=== PATIENT | male | born 1940 | race Caucasian/White ===

== ENCOUNTER 2018-04-30 16:54 | Inpatient (IN) | payer OTHER, BC ==
[2018-04-30 17:16] VITALS: BMI 28.8
--- NOTE | 2018-04-30 17:18 | PDOC ---
Rapid Medical Evaluation Chief Complaint: Weakness Medical Evaluation: Allergies Allergy/AdvReac Type Severity Reaction Status Date / Time No Known Allergies Allergy Verified 04/30/18 17:11 04/30/18 17:13 I have performed a brief in-person evaluation of this patient. The patient presents with a chief complaint of:sent from Dr Garza office for MRI, Cervical spine imaging for Pertinent physical exam findings: feeling well , weaker, I have ordered the following: CbC, CMP, Pt/ INR The patient will proceed to the ED for further evaluation. Discharge Disposition - Referrals Referrals: Martin Garza MD [Primary Care Provider] - - Patient Instructions - Post Discharge Activity
[2018-04-30 17:28] LABS: BASO % 0.7 % (0-2.0); EOS % 1.7 % (0-4.5); HEMATOCRIT 34.1 % (35.4-49); HEMOGLOBIN 11.9 GM/dL (11.7-16.9); LYMPH % 22.2 % (8-40); MCHC 35.1 g/dl (32.0-35.9); MEAN CELL VOLUME 88.4 fl (80-96); MEAN PLT VOLUME 7.7 fl (7.5-11.1); MONO % 8.1 % (3.8-10.2); NEUT % 67.3 % (42.8-82.8); PLATELET COUNT 388 K/MM3 (134-434); RBC 3.86 M/mm3 (4.00-5.60); RDW 15.9 % (11.9-15.9); WHITE BLOOD COUNT 7.8 K/mm3 (4.0-10.0)
[2018-04-30 17:45] LABS: INR 1.03 (0.83-1.09); PROTHROMBIN TIME (PATIENT) 12.2 SEC (9.7-13.0)
[2018-04-30 18:00] LABS: ALBUMIN 3.7 g/dl (3.4-5.0); ALK PHOS 97 U/L (45-117); ANION GAP 7 MMOL/L (8-16); BILIRUBIN,TOTAL 0.6 mg/dL (0.2-1); BLOOD UREA NITROGEN 15 mg/dL (7-18); CALCIUM 8.3 mg/dL (8.5-10.1); CHLORIDE 101 mmol/L (98-107); CO2 25 mmol/L (21-32); CREATININE 0.6 mg/dL (0.55-1.3); GLUCOSE,RANDOM 94 mg/dL (74-106); POTASSIUM 4.4 mmol/L (3.5-5.1); SGOT/AST 19 U/L (15-37); SGPT/ALT 32 U/L (13-61); SODIUM 134 mmol/L (136-145); TOT PROT 7.1 g/dl (6.4-8.2)
--- NOTE | 2018-04-30 18:59 | PDOC ---
History of Present Illness - General Chief Complaint: Weakness Stated Complaint: WEEKNESS Time Seen by Provider: 04/30/18 17:51 History Source: Patient, Care Provider Exam Limitations: No Limitations - History of Present Illness Initial Comments: 04/30/18 18:30 78YOM with h/o Dayan's syndrome, CVA, pre-existing mild left foot drop, HTN, and metastatic thyroid cancer s/p thyroidectomy. He presents with worsened left foot weakness over the past 2 weeks. He has had increased difficulty walking around his SNF ([facility]) and is now unable to ambulate himself. He has been doing PT at [facility] and had a clinic appointment with his neurologist (Dr. Garza) today. Dr. Garza had concern for cervical vs high thoracic myelopathy with likely epidural metastasis, possible cord compression, also C8T1 radiculopathy vs lower cord brachial plexopathy, also left peroneal mononeuropathy, also right Dayan's syndrome. The patient notes noticeable increased LLE weakness, right hand pain, otherwise denies any new symptoms. Past History - Past Medical History Allergies/Adverse Reactions: Allergies Allergy/AdvReac Type Severity Reaction Status Date / Time No Known Allergies Allergy Verified 04/30/18 17:11 Home Medications: Ambulatory Orders Acetaminophen 650 mg PO Q6H PRN 11/09/17 Atorvastatin Ca [Lipitor] 80 mg PO HS 11/09/17 Docusate Sodium [Colace] 100 mg PO DAILY 11/09/17 Enoxaparin [Lovenox -] 75 mg SQ BID 11/09/17 Gabapentin 300 mg PO BID 11/09/17 Gabapentin 600 mg PO HS #30 tablet 11/09/17 Levothyroxine [Synthroid -] 150 mcg PO DAILY 11/09/17 Metoprolol Succinate 50 mg PO DAILY 11/09/17 Multivitamins [Multivit ([facility] Formulary)] 1 tab PO DAILY 11/09/17 Cancer: Yes (leg and ribs) CVA: Yes COPD: No DVT: Yes GI Disorders: Yes (GERD) HTN: Yes Thyroid Disease: Yes - Surgical History Appendectomy: Yes - Immunization History Immunization Up to Date: Yes - Suicide/Smoking/Psychosocial Hx Smoking History: Never smoked Have you smoked in the past 12 months: No Hx Alcohol Use: No Drug/Substance Use Hx: No Substance Use Type: None Review of Systems - Review of Systems Able to Perform ROS?: Yes Comments:: GEN: no fever, chills, malaise, generalized weakness, or weight change HEENT: no ear pain, sore throat, vision change, or eye pain CV: no chest pain, palpitations, lightheadedness, syncope, or edema RESP: no cough, wheezing, or SOB GI: no abdominal pain, nausea, vomiting, diarrhea, constipation, or white/black/ bloody stool : no dysuria, hematuria, incontinence, retention, bleeding, or discharge MSK: right hand pain, no neck/back pain, no joint swelling/pain NEURO: left foot weakness, no headache, seizure, vertigo, numbness, tingling, or other focal weakness PSYCH: no substance use, no behavior change SKIN: no jaundice, no rash ROS otherwise negative except as noted in HPI *Physical Exam - Vital Signs Last Vital Signs Temp Pulse Resp BP Pulse Ox 98.0 F 64 18 155/65 97 04/30/18 17:12 04/30/18 17:12 04/30/18 17:12 04/30/18 17:12 04/30/18 17:12 04/30/18 21:10 GENERAL: nontoxic and well-appearing, A/Ox4, initially no distress at rest, answers questions appropriately, mild distress repositioning RUE, occasionally become anxious, caregiver at bedside, sitting in wheelchair HEENT: PERRLA, EOMI, moist mucous membranes NECK/BACK: no spinal stepoff or deformity, no hematoma, full ROM, neck supple CARDIOVASCULAR: regular rate/rhythm, normal S1S2, no MGR, strong peripheral pulses, capillary refill <2 seconds, extremities wwp, no edema LUNGS/RESPIRATORY: no respiratory distress, CTAB GI/ABDOMEN: symmetric hmax-uz-vamd, normoactive BS, soft, no ttp, no midline pulsatile masses : no CVA tenderness EXTREMITIES: no muscle atrophy, no acute deformity, no edema SKIN: warm and dry, no pallor, no jaundice, no rash, no bruising, no skin breakdown, no cuts, no lesions NEUROLOGICAL: GCS 15, CN II-XII grossly intact, 5/5 strength BUE and RLE, 3/5 strength LLE distally, no facial droop, gait not tested, normal yeprea-oh-bfle Moderate Sedation - Procedure Monitoring Vital Signs: Procedure Monitoring Vital Signs Temperature 98.0 F 04/30/18 17:12 Pulse Rate 64 04/30/18 17:12 Respiratory Rate 18 04/30/18 17:12 Blood Pressure 155/65 04/30/18 17:12 O2 Sat by Pulse Oximetry (%) 97 04/30/18 17:12 ED Treatment Course - LABORATORY CBC & Chemistry Diagram: 04/30/18 17:22 04/30/18 17:22 - ADDITIONAL ORDERS Additional order review: Laboratory Results 04/30/18 04/30/18 17:22 17:22 PT with INR 12.20 INR 1.03 Sodium 134 L Potassium 4.4 Chloride 101 Carbon Dioxide 25 Anion Gap 7 L BUN 15 Creatinine 0.6 Creat Clearance w eGFR > 60 Random Glucose 94 Calcium 8.3 L Total Bilirubin 0.6 AST 19 ALT 32 Alkaline Phosphatase 97 Total Protein 7.1 Albumin 3.7 04/30/18 17:22 RBC 3.86 L MCV 88.4 MCHC 35.1 RDW 15.9 MPV 7.7 Neutrophils % 67.3 Lymphocytes % 22.2 D Monocytes % 8.1 Eosinophils % 1.7 Basophils % 0.7 - RADIOLOGY Radiology Studies Ordered: Category Date Time Status CERVICAL SPINE MRI W&W/O CONTR [MRI] Stat MRI 04/30/18 18:24 Ordered THORACIC SPINE MRI W/O CONTR [MRI] Stat MRI 04/30/18 18:25 Ordered CHEST X-RAY PORTABLE* [RAD] Stat Radiology 04/30/18 18:26 Ordered Medical Decision Making - Medical Decision Making 04/30/18 19:06 78 YOM with pre-existing LLE foot drop p/w worsened LLE weakness x2 weeks. Sent for emergent MRI C/T spine wwo contrast to r/o cord compression. C/f metastatic thyroid cancer with cord compression. Initial Vital Signs Temp Pulse Resp BP Pulse Ox 98.0 F 64 18 155/65 97 04/30/18 17:12 04/30/18 17:12 04/30/18 17:12 04/30/18 17:12 04/30/18 17:12 04/30/18 19:[address] Garza, concern is for possibility of cervical vs high thoracic myelopathy with likely epidural metastasis, possible cord compression, also C8T1 radiculopathy vs lower cord brachial plexopathy, also left peroneal mononeuropathy, also right Dayan's syndrome. Provider Orders Category Date Time Status TYPE AND SCREEN Stat Blood Bank 04/30/18 18:26 Ordered EKG [ELECTROCARDIOGRAM] [CARD] Stat Cardiology 04/30/18 18:26 Ordered EKG needed NOW Care 04/30/18 18:26 Ordered CBC WITH DIFFERENTIAL Stat Lab 04/30/18 17:22 Completed COMP METABOLIC PANEL Stat Lab 04/30/18 17:22 Completed INR [PT/INR (PROTHROMBIN TIME)] Stat Lab 04/30/18 17:22 Completed MAGNESIUM Routine Lab 04/30/18 18:26 Ordered PHOSPHOROUS Routine Lab 04/30/18 18:26 Ordered URINALYSIS Stat Lab 04/30/18 18:26 Ordered CERVICAL SPINE MRI W&W/O CONTR [MRI] Stat MRI 04/30/18 18:24 Ordered THORACIC SPINE MRI W/O CONTR [MRI] Stat MRI 04/30/18 18:25 Ordered URINE CULTURE Stat Micro 04/30/18 18:26 Ordered CHEST X-RAY PORTABLE* [RAD] Stat Radiology 04/30/18 18:26 Ordered Obtain MRI Questionnaire See Order Reminders 04/30/18 18:25 Ordered 04/30/18 21:07 Laboratory Tests 04/30/18 04/30/18 04/30/18 17:22 17:22 17:22 WBC 7.8 RBC 3.86 L Hgb 11.9 Hct 34.1 L MCV 88.4 MCH 31.0 MCHC 35.1 RDW 15.9 Plt Count 388 MPV 7.7 Absolute Neuts (auto) 5.3 Neutrophils % 67.3 Lymphocytes % 22.2 D Monocytes % 8.1 Eosinophils % 1.7 Basophils % 0.7 Nucleated RBC % 0 PT with INR 12.20 INR 1.03 Sodium 134 L Potassium 4.4 Chloride 101 Carbon Dioxide 25 Anion Gap 7 L BUN 15 Creatinine 0.6 Creat Clearance w eGFR > 60 Random Glucose 94 Calcium 8.3 L Phosphorus Magnesium Total Bilirubin 0.6 AST 19 ALT 32 Alkaline Phosphatase 97 Total Protein 7.1 Albumin 3.7 04/30/18 20:16 WBC RBC Hgb Hct MCV MCH MCHC RDW Plt Count MPV Absolute Neuts (auto) Neutrophils % Lymphocytes % Monocytes % Eosinophils % Basophils % Nucleated RBC % PT with INR INR Sodium Potassium Chloride Carbon Dioxide Anion Gap BUN Creatinine Creat Clearance w eGFR Random Glucose Calcium Phosphorus Cancelled Magnesium Cancelled Total Bilirubin AST ALT Alkaline Phosphatase Total Protein Albumin 04/30/18 21:09 Patient notes RUE pain, given Gabapentin and Tylenol. Completed MRI questionnaire, patient still awaiting MRI spot to open. Patient's brother is Rickey, who is next of kin. Rickey's number is [phone]. 04/30/18 21:21 I have spoken with sterile proc tech at this time. They are unable to do the MRI tonight. MRI is aware this is a STAT order, emergent, r/o cord compression. The patient will be on the schedule for tomorrow. I have ordered 10 of decadron. The Pt is unsafe for discharge at this time. They require further hospital observation, workup, and treatment. Microblog sent to [facility] for admission. Blank Decision to Admit order is placed per ED protocol. Consult placed to Dr. Garza. *DC/Admit/Observation/Transfer Diagnosis at time of Disposition: Weakness of left foot, Right hand pain - Discharge Dispostion Condition at time of disposition: Guarded Decision to Admit order: Yes - Referrals Referrals: Martin Garza MD [Primary Care Provider] - - Patient Instructions - Post Discharge Activity
--- NOTE | 2018-04-30 19:12 | PDOC ---
Attending Attestation - Medical Decision Making 05/01/2018 01:29 EST EXAM: HEAD CT WITHOUT CONTRAST HISTORY: Footdrop COMPARISON: None. FINDINGS: The ventricular system is midline and nondilated. There is mild cortical atrophy and vessel ischemic disease.. Old small right occipital infarct is noted as well as a tiny old right cerebellar lobe infarct. There is no bleed, mass, extra-axial fluid collection or mass effect. No skull fracture or skull lesion is identified. The visualized paranasal sinuses and mastoid air cells are clear. IMPRESSION: No evidence of acute pathology. THIS DOCUMENT HAS BEEN ELECTRONICALLY SIGNED Anthony Jordan MD 05/01/18 01:42 Documentation prepared by Maria Elena Rivera, acting as certified medical coding specialist for Estephania Cantu MD <Maria Elena Rivera - Last Filed: 05/01/18 01:42> - Resident Resident Name: MeghanDulce - ED Attending Attestation I have performed the following: I have examined & evaluated the patient, The case was reviewed & discussed with the resident, I agree w/resident's findings & plan, Exceptions are as noted - HPI HPI: 04/30/18 19:10 78 yo male was seen by neurologist Dr Garza today and sent for further evaluation because this pt has increasing LLE weakness and L foot drop for the past 2 weeks PMH chronic L foot drop, thyroid cancer CC increased LL weakness x [address] Garza recognized right Dayan;s syndrome today and requested a MRI 04/30/18 20:55 alert 78 yo male on [facility] complaining of musculoskeletal pain head ncat neck no jvd lungs cta b/l cvs [id number] abd no rebound,no guarding skin warm and dry 04/30/18 21:00 - Physicial Exam PE: 04/30/18 22:26 78 yo male p/w chronic but worsening left foot drop head ncat neck no jvd lungs cta b/l cvs [id number] abd nontender extremities left foot drop neuro alert c/o of pain psych anxious - Medical Decision Making 04/30/18 22:03 pt admitted for hematology/oncology consult and for radiation oncology and further imaging studies. 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 Garza Patient has been a [facility] and his primary care provider is Dr. 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 -He has had some bladder incontinence in past few months -In December 2017. He was found to have metastases in T1, T2 -please consult Dr Og Roberson or Dr Zavala <Estephania Cantu - Last Filed: 05/01/18 02:33>
[2018-04-30] MEDS ORDERED: GABAPENTIN 300 MG CAPSULE (FP) PO ONE (20:53)
[2018-04-30] MEDS ORDERED: ACETAMINOPHEN 500 MG TABLET (FP) PO STA (20:53)
[2018-04-30] MEDS ORDERED: ACETAMINOPHEN 325 MG TABLET (FP) ONE (21:02)
[2018-04-30] MEDS ORDERED: GABAPENTIN 100 MG CAPSULE (FP) ONE (21:03)
[2018-04-30] MEDS ORDERED: DEXAMETHASONE SOD PHOSPHATE 10 MG/1 ML VIAL IVPUSH ONE (21:38)
[2018-04-30] MEDS ORDERED: DEXAMETHASONE SOD PHOSPHATE 10 MG/1 ML VIAL ONE (21:57)
--- NOTE | 2018-04-30 22:11 | HP ---
CHIEF COMPLAINT: left foot drop PCP: Bryn HISTORY OF PRESENT ILLNESS: 77-year-old male with past medical history of Throid ca, s/p thyroidectomy- '06 ? with mets to rib cage, thoracic vertebrae, left femur? s/p radiation therapy, radioactive iodine therapy however never had other systemic chemotherapy. Hx of DVT in left lower extremity, on AC with lovenox. Patient was in Dr. Garza's office and c/o worsening left foot drop and right hand pain. He is ambulatory with walker at baseline but unable to ambulate at this time. He is sent in for MRI of cervical and thoracic spine. Patient denied any numbness or paresthesias. He received decadron IV empirically in ER due to suspicion of possible spinal cord compression. ER course was notable for: (1) IV dexamethasone adminstration (2) tylenol (3) Recent Travel: no PAST MEDICAL HISTORY: Thyroid ca with mets, htn, acid reflux, DVT in LLE on Lovenox PAST SURGICAL HISTORY: thryoidectomy Social History: Smoking: no Alcohol: no Drugs: no Family History: Allergies No Known Allergies Allergy (Verified 04/30/18 17:11) HOME MEDICATIONS: Home Medications Medication Instructions Recorded Acetaminophen 650 mg PO Q6H PRN 11/09/17 Atorvastatin Ca [Lipitor] 80 mg PO HS 11/09/17 Docusate Sodium [Colace] 100 mg PO DAILY 11/09/17 Enoxaparin [Lovenox -] 75 mg SQ BID 11/09/17 Gabapentin 300 mg PO BID 11/09/17 Gabapentin 600 mg PO HS #30 tablet 11/09/17 Levothyroxine [Synthroid -] 150 mcg PO DAILY 11/09/17 Metoprolol Succinate 50 mg PO DAILY 11/09/17 Multivitamins [Multivit ([facility] 1 tab PO DAILY 11/09/17 Formulary)] REVIEW OF SYSTEMS CONSTITUTIONAL: Absent: fever, chills, diaphoresis, generalized weakness, malaise, loss of appetite, weight change HEENT: Absent: rhinorrhea, nasal congestion, throat pain, throat swelling, difficulty swallowing, mouth swelling, ear pain, eye pain, visual changes CARDIOVASCULAR: Absent: chest pain, syncope, palpitations, irregular heart rate, lightheadedness , peripheral edema RESPIRATORY: Absent: cough, shortness of breath, dyspnea with exertion, orthopnea, wheezing, stridor, hemoptysis GASTROINTESTINAL: Absent: abdominal pain, abdominal distension, nausea, vomiting, diarrhea, constipation, melena, hematochezia GENITOURINARY: Absent: dysuria, frequency, urgency, hesitancy, hematuria, flank pain, genital pain MUSCULOSKELETAL: Absent: joint swelling, back pain, neck pain Present-myalgia, arthralgia, SKIN: Absent: rash, itching, pallor HEMATOLOGIC/IMMUNOLOGIC: Absent: easy bleeding, easy bruising, lymphadenopathy, frequent infections ENDOCRINE: Absent: unexplained weight gain, unexplained weight loss, heat intolerance, cold intolerance NEUROLOGIC: Absent: headache, or paresthesias, dizziness, unsteady gait, seizure, mental status changes, bladder or bowel incontinence Present- focal weakness- left foot PSYCHIATRIC: Absent: anxiety, depression, suicidal or homicidal ideation, hallucinations. PHYSICAL EXAMINATION Vital Signs - 24 hr 04/30/18 17:12 Temperature 98.0 F Pulse Rate 64 Respiratory 18 Rate Blood Pressure 155/65 O2 Sat by Pulse 97 Oximetry (%) GENERAL: Awake, alert, and fully oriented, in no acute distress. HEAD: Normal with no signs of trauma. EYES: Pupils equal, round and reactive to light, extraocular movements intact, sclera anicteric, conjunctiva clear. No lid lag. EARS, NOSE, THROAT: Ears normal, nares patent, oropharynx clear without exudates. Moist mucous membranes. NECK: Normal range of motion, supple without lymphadenopathy, JVD, or masses. LUNGS: Breath sounds equal, clear to auscultation bilaterally. No wheezes, and no crackles. No accessory muscle use. HEART: Regular rate and rhythm, normal S1 and S2 without murmur, rub or gallop. ABDOMEN: Soft, nontender, not distended, normoactive bowel sounds, no guarding, no rebound, no masses. No hepatomegaly or splenomegaly. MUSCULOSKELETAL: Normal range of motion at all joints. No bony deformities or tenderness. No CVA tenderness. UPPER EXTREMITIES: right hand arthritis, deformity LOWER EXTREMITIES: 2+ pulses, warm, well-perfused. No calf tenderness. No peripheral edema. NEUROLOGICAL: left foot drop, inability to dorsiflex PSYCHIATRIC: Cooperative. Good eye contact. Appropriate mood and affect. SKIN: Warm, dry, normal turgor, no rashes or lesions noted, normal capillary refill. Laboratory Results - last 24 hr 04/30/18 04/30/1804/30/18 17:22 17:22 17:22 WBC 7.8 RBC 3.86 L Hgb 11.9 Hct 34.1 L MCV 88.4 MCH 31.0 MCHC 35.1 RDW 15.9 Plt Count 388 MPV 7.7 Absolute Neuts (auto) 5.3 Neutrophils % 67.3 Lymphocytes % 22.2 D Monocytes % 8.1 Eosinophils % 1.7 Basophils % 0.7 Nucleated RBC % 0 PT with INR 12.20 INR 1.03 Sodium 134 L Potassium 4.4 Chloride 101 Carbon Dioxide 25 Anion Gap 7 L BUN 15 Creatinine 0.6 Creat Clearance w eGFR > 60 Random Glucose 94 Calcium 8.3 L Phosphorus Magnesium Total Bilirubin 0.6 AST 19 ALT 32 Alkaline Phosphatase 97 Total Protein 7.1 Albumin 3.7 04/30/18 20:16 WBC RBC Hgb Hct MCV MCH MCHC RDW Plt Count MPV Absolute Neuts (auto) Neutrophils % Lymphocytes % Monocytes % Eosinophils % Basophils % Nucleated RBC % PT with INR INR Sodium Potassium Chloride Carbon Dioxide Anion Gap BUN Creatinine Creat Clearance w eGFR Random Glucose Calcium Phosphorus Cancelled Magnesium Cancelled Total Bilirubin AST ALT Alkaline Phosphatase Total Protein Albumin ASSESSMENT/PLAN: #78yo man with Thyroid ca history with reported mets with suspicion of new mets to spine. Worsening left foot symptoms. Cannot r/o CVA. -admit to telemetry -bed rest -fall precautions -f/u head CT report -neuro checks -s/p decadron IV -neuro evaluation - Dr. Garza -MRI of cervical and thoracic spines -Heme/onc evaluation for history of thyroid ca -NPO -PT evaluation -speech and swallow eval -echo -carotid duplex b/l #History of LLE DVT -c/w therapeutic dose of lovenox #Resultant hypothyroidism -c/w levothyroxine 150mcg po daily #HTN -c/w metoprolol DVT ppx- on lovenox Visit type - Emergency Visit Emergency Visit: Yes ED Registration Date: 04/30/18 Care time: The patient presented to the Emergency Department on the above date and was hospitalized for further evaluation of their emergent condition. - New Patient This patient is new to me today: Yes Date on this admission: 05/01/18 - Critical Care Critical Care patient: No
[2018-04-30 22:14] LABS: URINE APPEARANCE SLCLOUDY; URINE BILIRUBIN NEGATIVE (<2.0 mg/dL); URINE COLOR LTYELLOW; URINE GLUCOSE (UA) NEGATIVE (NEGATIVE); URINE KETONE NEGATIVE (NEGATIVE); URINE LEUK ESTERASE 3+ (NEGATIVE); URINE NITRITE NEGATIVE (NEGATIVE); URINE PROTEIN NEGATIVE (NEGATIVE); URINE UROBILINOGEN NEGATIVE mg/dL (0.2-1.0)
[2018-04-30 22:25] LABS: EPI CELLS RARE /HPF (FEW); URINE BACTERIA RARE /hpf (NONE SEEN); URINE MUCUS RARE; YEAST RARE
[2018-05-01] MEDS ORDERED: ENOXAPARIN NA (PORCINE) 80 MG/0.8 ML DISP.SYRIN SQ SCH (00:15)
[2018-05-01] MEDS ORDERED: ENOXAPARIN NA (PORCINE) 80 MG/0.8 ML DISP.SYRIN SQ ONE (01:35)
[2018-05-01] MEDS: ENOXAPARIN NA (PORCINE) 80 MG/0.8 ML DISP.SYRIN SQ SCH ×3 (02:52→21:39)
[2018-05-01 05:44] LABS: BASO % 0.3 % (0-2.0); HEMATOCRIT 36.4 % (35.4-49); HEMOGLOBIN 11.9 GM/dL (11.7-16.9); LYMPH % 8.7 % (8-40); MCH 29.3 pg (25.7-33.7); MCHC 32.6 g/dl (32.0-35.9); MEAN CELL VOLUME 89.9 fl (80-96); MONO % 0.9 % (3.8-10.2); NEUT % 90.1 % (42.8-82.8); PLATELET COUNT 346 K/MM3 (134-434); RBC 4.05 M/mm3 (4.00-5.60); WHITE BLOOD COUNT 7.6 K/mm3 (4.0-10.0)
[2018-05-01] MEDS ORDERED: HEPARIN NA (PORCINE) 5,000 UNITS/ML 1ML VIAL SQ SCH (06:00)
[2018-05-01] MEDS ORDERED: LEVOTHYROXINE NA 150 MCG TABLET PO SCH (07:00)
--- NOTE | 2018-05-01 09:44 | EKG ---
Test Reason : Blood Pressure : / mmHG Vent. Rate : 064 BPM Atrial Rate : 064 BPM P-R Int : 196 ms QRS Dur : 098 ms QT Int : 442 ms P-R-T Axes : 048 -26 062 degrees QTc Int : 455 ms NORMAL SINUS RHYTHM MODERATE VOLTAGE CRITERIA FOR LVH, MAY BE NORMAL VARIANT NONSPECIFIC ST ABNORMALITY ABNORMAL ECG WHEN COMPARED WITH ECG OF 09-NOV-2017 12:45, NO SIGNIFICANT CHANGE WAS FOUND Confirmed by LADAN URIAS, CHERRY ([id number]) on 05/01/2018 9:43:59 AM Referred By: Confirmed By:CHERRY PICKERING MD
--- NOTE | 2018-05-01 11:39 | ECHO ---
Name: KENNETH ANDUJAR Exam:Adult Echocardiogram Study Date: 05/01/2018 07:42 AM Age: 78 yrs Reason For Study: R/O PFO Height: 68 in Weight: 190 lb BSA: 2.0 m2 MMode/2D Measurements & Calculations IVSd: 1.1 cm Ao root diam: 3.1 cm LVIDd: 4.3 cm LA dimension: 2.6 cm LVIDs: 2.8 cm LVPWd: 1.0 cm EDV(Teich): 84.6 ml ESV(Teich): 30.7 ml Doppler Measurements & Calculations MV E max juan: 74.7 cm/sec AI P1/2t: 453.5 msec MV A max juan: 118.4 cm/sec MV E/A: 0.63 MV dec time: 0.20 sec AI max juan: 356.3 cm/sec TR max juan: 158.4 cm/sec AI max P.8 mmHg TR max P.1 mmHg AI dec slope: 230.1 cm/sec2 Procedure A two-dimensional transthoracic echocardiogram with color flow and Doppler was performed. Left Ventricle The left ventricular size, thickness and function are normal. The left ventricular ejection fraction is normal. E/A reversal consistent with but not diagnostic of poor LV compliance. The left ventricular w all motion is normal. Right Ventricle The right ventricle is normal in size and function. Atria Normal left and right atrial size and function. Atrial septum is not well visualized. TTE is not sensitive enough test to r/o PFO. Consider LIVIA if clically indicated. Mitral Valve There is mild mitral valve thickening. There is no mitral valve stenosis. There is trace to mild mitr al regurgitation. Tricuspid Valve There is mild tricuspid valve thickening. There is no tricuspid stenosis. There is moderate tricuspid regurgitation. Right ventricular systolic pressure is normal. Aortic Valve The aortic valve is trileaflet. There is mild aortic sclerosis.;. There is mild aortic valve thickeni ng. No hemodynamically significant valvular aortic stenosis. Moderate aortic regurgitation. Pulmonic Valve The pulmonic valve is not well visualized. There is no pulmonic valvular stenosis. There is no pulmon ic valvular regurgitation. Great Vessels The aortic root is normal size. Pericardium/Pleura There is no pericardial effusion. Interpretation Summary Moderate aortic regurgitation. There is moderate tricuspid regurgitation. Right ventricular systolic pressure is normal. The left ventricular wall motion is normal. E/A reversal consistent with but not diagnostic of poor LV compliance The left ventricular ejection fraction is normal. The left ventricular size, thickness and function are normal There is trace to mild mitral regurgitation. Atrial septum is not well visualized. TTE is not sensitive enough test to r/o PFO. Consider LIVIA if clically indicated. MD Esequiel Donahue 05/01/2018 11:38 AM
[2018-05-01] MEDS: DOCUSATE SODIUM 100 MG CAPSULE (FP) PO SCH (11:50)
[2018-05-01] MEDS: GABAPENTIN 300 MG CAPSULE (FP) PO SCH ×2 (11:51→21:39)
[2018-05-01] MEDS: MULTIVITAMINS (DAILY MVI) TABLET (FP) PO SCH (11:52)
[2018-05-01] MEDS ORDERED: ACETAMINOPHEN 325 MG TABLET (FP) ONE (12:09)
[2018-05-01] MEDS ORDERED: ACETAMINOPHEN 500 MG TABLET (FP) PO ONE (12:16)
[2018-05-01] MEDS: DEXTROSE 5%-0.45% SALINE 1,000 ML IV SCH (12:58)
--- NOTE | 2018-05-01 13:04 | CONSULT ---
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 He did well until 2014 with mets to the left femur and two ribs. He required ORIF of the femur x 2 and received RT to these [address] Salome Curry. Since then he has been followed by [facility] in [place]. Right hand numbness began around October and was attributed to "stroke" although Pt relates MRI of brain was normal. He had CT of the C-spine in October, however, that showed a metastatic disease to T1 with paraspinal extension to the right. Over the last 6 mos Pt has had progressive weakness, atrophy and pain in the right arm requiring narcotics. He has developed ptosis on the right and received Dx of Dayan's syndrome. Over the last 3 mos he has had progressive weakness in the legs with loss of ambulation. Recently, occasional urinary incontinence (in pull-ups). Exam: Decreased neck ROM with tenderness. Right ptosis and mild miosis (3mm vs 4 OS). Right grasp, intrinsics, APB all 2/5. Left ankle DF, eversion 3/5, inversion, PF 4/5. Brisk KJ's. Right Babinski. Sensory level to pinprick above the breasts. MRI of the Cervical and Thoracic spine (C+/C-) reviewed and discussed with Dr. Cuello. The study shows complete replacement of T1 with tumor and extensive epidural component, compressing the cord,and extensive right paraspinal extension compressing exiting nerve roots, the Brachial plexus and the sympathetic chain. 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 Left peroneal mononeuropathy. #'s 1-3 are all due to large T1 vertebral mass with right paraspinal and epidural extension. SUGGEST: Radiation oncology consultation Medical Oncology consultation Trial of Decadron Continue pain meds Not a surgical candidate. Thank you very much, Martin Garza MD
--- NOTE | 2018-05-01 14:13 | PN ---
Progress Note (short form) - Note Progress Note: Has pain in right arm Left foot drop Vital Signs - 24 hr 04/30/18 05/01/18 05/01/18 19:10 06:52 08:38 Temperature 97.7 F Pulse Rate Pulse Rate [ 94 H 69 Right Radial] Respiratory 17 16 Rate Blood Pressure Blood Pressure 162/77 120/6 L [Left Arm] O2 Sat by Pulse 100 96 95 Oximetry (%) 05/01/18 05/01/18 05/01/18 09:00 11:00 14:11 Temperature 98.4 F 98.3 F Pulse Rate Pulse Rate [ 74 66 Right Radial] Respiratory 18 18 Rate Blood Pressure Blood Pressure 106/59 L 99/54 L [Left Arm] O2 Sat by Pulse 95 95 95 Oximetry (%) 05/01/18 16:22 Temperature 98.0 F Pulse Rate 63 Pulse Rate [ Right Radial] Respiratory 20 Rate Blood Pressure 107/57 L Blood Pressure [Left Arm] O2 Sat by Pulse 97 Oximetry (%) Current Medications Generic Name Dose Route Start Last Admin Trade Name Freq PRN Reason Stop Dose Admin Acetaminophen 650 mg 05/01/18 12:16 Tylenol - PO Q4H PRN FEVER Atorvastatin Calcium 80 mg 05/01/18 22:00 Lipitor - PO HS [facility] Dexamethasone Sodium Phosphate 10 mg 05/01/18 18:00 Decadron Injection - IVPB Q6H [facility] Docusate Sodium 100 mg 05/01/18 10:00 05/01/18 11:50 Colace - PO 100 mg DAILY DEAN Administration Enoxaparin Sodium 80 mg 05/01/18 00:45 05/01/18 11:51 Lovenox - SQ 80 mg BID DEAN Administration Gabapentin 300 mg 05/01/18 10:00 05/01/18 11:51 Neurontin - PO 300 mg BID DEAN Administration Dextrose/Sodium Chloride 1,000 mls @ 75 mls/hr 05/01/18 10:00 05/01/18 12:58 D5-1/2ns - IV Not Given ASDIR DEAN Levothyroxine Sodium 150 mcg 05/01/18 07:00 05/01/18 08:13 Synthroid - PO 150 mcg DAILY@0700 DEAN Administration Metoprolol Succinate 50 mg 05/01/18 10:00 05/01/18 11:52 Toprol Xl - PO 50 mg DAILY DEAN Administration Multivitamins/Minerals/Vitamin C 1 tab 05/01/18 10:00 05/01/18 11:52 Tab-A-Vit - PO 1 tab DAILY DEAN Administration Oxycodone HCl 5 mg 05/01/18 12:16 Roxicodone - PO Q4H PRN PAIN LEVEL 6-10 Laboratory Results - last 24 hr 04/30/18 04/30/18 04/30/18 17:22 17:22 17:22 WBC 7.8 RBC 3.86 L Hgb 11.9 Hct 34.1 L MCV 88.4 MCH 31.0 MCHC 35.1 RDW 15.9 Plt Count 388 MPV 7.7 Absolute Neuts (auto) 5.3 Neutrophils % 67.3 Lymphocytes % 22.2 D Monocytes % 8.1 Eosinophils % 1.7 Basophils % 0.7 Nucleated RBC % 0 PT with INR 12.20 INR 1.03 Sodium 134 L Potassium 4.4 Chloride 101 Carbon Dioxide 25 Anion Gap 7 L BUN 15 Creatinine 0.6 Creat Clearance w eGFR > 60 Random Glucose 94 Calcium 8.3 L Phosphorus Magnesium Total Bilirubin 0.6 AST 19 ALT 32 Alkaline Phosphatase 97 Total Protein 7.1 Albumin 3.7 Triglycerides Cholesterol Total LDL Cholesterol HDL Cholesterol TSH Urine Color Urine Appearance Urine pH Ur Specific [place] Urine Protein Urine Glucose (UA) Urine Ketones Urine Blood Urine Nitrite Urine Bilirubin Urine Urobilinogen Ur Leukocyte Esterase Urine WBC (Auto) Urine RBC (Auto) Ur Epithelial Cells Urine Bacteria Urine Mucus Urine Yeast Blood Type Antibody Screen 04/30/18 04/30/18 04/30/18 20:07 20:16 20:16 WBC RBC Hgb Hct MCV MCH MCHC RDW Plt Count MPV Absolute Neuts (auto) Neutrophils % Lymphocytes % Monocytes % Eosinophils % Basophils % Nucleated RBC % PT with INR INR Sodium Potassium Chloride Carbon Dioxide Anion Gap BUN Creatinine Creat Clearance w eGFR Random Glucose Calcium Phosphorus Cancelled Magnesium Cancelled Total Bilirubin AST ALT Alkaline Phosphatase Total Protein Albumin Triglycerides Cholesterol Total LDL Cholesterol HDL Cholesterol TSH Urine Color Ltyellow Urine Appearance Slcloudy Urine pH 6.0 Ur Specific [place] 1.008 L Urine Protein Negative Urine Glucose (UA) Negative Urine Ketones Negative Urine Blood Negative Urine Nitrite Negative Urine Bilirubin Negative Urine Urobilinogen Negative Ur Leukocyte Esterase 3+ H Urine WBC (Auto) 192 Urine RBC (Auto) 18 Ur Epithelial Cells Rare Urine Bacteria Rare Urine Mucus Rare Urine Yeast Rare Blood Type A POSITIVE Antibody Screen Negative 05/01/18 05/01/18 05:10 05:10 WBC 7.6 RBC 4.05 Hgb 11.9 Hct 36.4 MCV 89.9 MCH 29.3 MCHC 32.6 RDW 16.0 H Plt Count 346 MPV 8.0 Absolute Neuts (auto) 6.8 Neutrophils % 90.1 H Lymphocytes % 8.7 D Monocytes % 0.9 L D Eosinophils % 0.0 D Basophils % 0.3 Nucleated RBC % 0 PT with INR INR Sodium Potassium Chloride Carbon Dioxide Anion Gap BUN Creatinine Creat Clearance w eGFR Random Glucose Calcium Phosphorus Magnesium Total Bilirubin AST ALT Alkaline Phosphatase Total Protein Albumin Triglycerides 57 Cholesterol 143 Total LDL Cholesterol 79 HDL Cholesterol 47 TSH 0.08 L Urine Color Urine Appearance Urine pH Ur Specific [place] Urine Protein Urine Glucose (UA) Urine Ketones Urine Blood Urine Nitrite Urine Bilirubin Urine Urobilinogen Ur Leukocyte Esterase Urine WBC (Auto) Urine RBC (Auto) Ur Epithelial Cells Urine Bacteria Urine Mucus Urine Yeast Blood Type Antibody Screen S1 S2 RRR Lungs clear Abd- soft, NT No edema PLAN spoke with PMD- DR Rae -- pt has h/o mets to thoracic spine and had radiation done in 2016-had recent follow up with Oncologist Pt had EMG done at Dr Garza's office prior to coming to the ER received Decadron Iv fluids PT eval pain control Problem List - Problems (1) Right hand pain Code(s): M79.641 - PAIN IN RIGHT HAND (2) Weakness of left foot Code(s): M21.42 - FLAT FOOT [PES PLANUS] (ACQUIRED), LEFT FOOT (3) Cervical radiculopathy Code(s): M54.12 - RADICULOPATHY, CERVICAL REGION (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
--- NOTE | 2018-05-01 16:33 | CONSULT ---
Consult Consult Specialty:: Hematology-Oncology Referred by:: Dr. 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 Was initially diagnosed in 2005 and treated with thyroidectomy, radioiodine therapy. In 2014 he sustained a spontaneous left femur fracture and was found to have mets in his left femur and ribs, he had 5 sessions of radiation therapy to b/l ribs and left femur [place] [address] Vick, last session in Feb 2015, shortly after he required a revision of a left femur titanium stephenie due to possible re-fracture(completed at [facility]). received PET scans with Dr. Vick every 3 months but nothing was abnormal. In October he thinks he was diagnosed with a stroke with subsequent Dayan's syndrome at [facility] and was started on metoprolol and lovenox for secondary prophylaxis due to hypercoaguability from malignancy. He notes numbness and tingling in his right arm since October and for past few days notes a functional decline in his mobility. typically is able to walk with a walker post-surgically but required a wheelchair to get to dining [facility]wing at [facility]. Denies chest pain, trouble swallowing, headaches, vision changes, tinnitus, cough, sob, cough, abdominal pain, incontinence, hematuria, melena, dysuria. denies hx of VTE. 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 at the age of 36 he began to identify as a male and underwent bilateral mastectomy, no hormonal therapy. requests to be addressed as a male. Fhx: mother with Grave's disease, 4 out of 5 siblings with thyroid dysfunction: sister with hashimotot's, 2 brothers with hypothyroidism soc hx: smoked cigars and a pipe for 10yrs, quit in 2005. socially drinks wine with dinner. denies illicit drug use Surgical hx: thyroidectomy 2005, femur fracture with ORIF in 2014 - History Source History Provided By: Patient - Alcohol/Substance Use Hx Alcohol Use: No - Smoking History Smoking history: Never smoked Have you smoked in the past 12 months: No Home Medications - Allergies Allergies/Adverse Reactions: Allergies Allergy/AdvReac Type Severity Reaction Status Date / Time No Known Allergies Allergy Verified 04/30/18 17:11 - Home Medications Home Medications: Ambulatory Orders Acetaminophen 650 mg PO Q6H PRN 11/09/17 Atorvastatin Ca [Lipitor] 80 mg PO HS 11/09/17 Docusate Sodium [Colace] 100 mg PO DAILY 11/09/17 Enoxaparin [Lovenox -] 75 mg SQ BID 11/09/17 Gabapentin 300 mg PO BID 11/09/17 Gabapentin 600 mg PO HS #30 tablet 11/09/17 Levothyroxine [Synthroid -] 150 mcg PO DAILY 11/09/17 Metoprolol Succinate 50 mg PO DAILY 11/09/17 Multivitamins [Multivit ([facility] Formul[facility])] 1 tab PO DAILY 11/09/17 Review of Systems - Review of Systems Constitutional: denies: Fever, Loss of Appetite, Unintentional Wgt. Loss, Weakness Eyes: denies: Blurred Vision, Double Vision HENT: denies: Difficult Swallowing, Throat Pain Neck: denies: Stiffness, Tenderness Cardiovascular: denies: Chest Pain, Palpitations, Shortness of Breath Respiratory: denies: Cough Gastrointestinal: denies: Abdominal Pain, Constipation, Diarrhea, Vomiting Genitourinary: denies: Dysuria Musculoskeletal: reports: Muscle Weakness. denies: Back Pain Integumentary: reports: No Symptoms Neurological: reports: Parasthesia (right arm), Weakness. denies: Confusion, Dizziness, Headache Hematology/Lymphatic: reports: No Symptoms Psychiatric: reports: No Symptoms Physical Exam Vital Signs: Vital Signs Temperature 98.3 F 05/01/18 14:11 Pulse Rate 66 05/01/18 14:11 Respiratory Rate 18 05/01/18 11:00 Blood Pressure 99/54 L 05/01/18 14:11 O2 Sat by Pulse Oximetry (%) 95 05/01/18 14:11 Constitutional: Yes: No Distress, Calm Eyes: Yes: Conjunctiva Clear, EOM Intact, PERRL, Ptosis (right eye) HENT: Yes: Atraumatic, Normocephalic. No: Drooling, Pharyngeal Erythema, Thrush Neck: Yes: Supple, Trachea Midline, Other (well-healed thyroidectomy, multiple seborrheic keratosis). No: Lymphadenopathy Cardiovascular: Yes: Regular Rate and Rhythm, S1, S2. No: Murmur Respiratory: Yes: Regular, CTA Bilaterally. No: Cough Gastrointestinal: Yes: Normal Bowel Sounds, Soft Extremities: Yes: Other Edema: No Peripheral Pulses WNL: Yes Integumentary: Yes: WNL Neurological: Yes: Alert, Oriented, Babinski positive (right foot). No: Aphasia ...Motor Strength: LUE (5/5 at shoulder, triceps, biceps and hand push connector assembler.), LLE (1 /5 strength at hip extension, 1/5 at knee extension, 1/5 ankle dorsiflexion and 0/5 plantar flexion. sensation diminished anteriorly from thigh to foot. minimal lateral thigh. no patellar reflex illicited), RUE (decr right hand push connector assembler , dorsum of hand with muscle atrophy, 4/5 shoulder extension/triceps and biceps. ), RLE (sensation intact throughout. 5/5 hip and knee extension, 5/5 dorsi and plantar flexion at ankle. 2+ patellar relfex. sensation intact throughout) Psychiatric: Yes: Alert, Oriented Labs: CBC, BMP 05/01/18 05:10 04/30/18 17:22 Assessment/Plan 78 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 Problem list: Metastatic follicular cancer with symptomatic vertebral mass A/P decadron 10mg IVpiggyback q6hr, pt did not tolerate IVpush in the ED, will attempt piggy back Radiotion oncology evalation, pt received radiation to this lesion by Chance Borja at [facility], will need to obtain records and plan for inpatient radiation GI prophylaxis while on steroids neuro checks continue lovenox until we can determine why he is on this dose, chart review indicates DVT, but pt denied that he has a hx of VTE and says the lovenox was for secondary stroke prophylaxis, would appreciate neurology's input regarding AC use for CVA
[2018-05-01] MEDS ORDERED: DEXAMETHASONE SOD PHOSPHATE 10 MG/1 ML VIAL IVPUSH SCH (16:45)
[2018-05-01] MEDS: DEXAMETHASONE SOD PHOSPHATE 10 MG/1 ML VIAL IVPB SCH (18:09)
--- NOTE | 2018-05-01 21:17 | PN ---
Progress Note (short form) - Note Progress Note: Radiation Oncology Pt seen and evaluated, chart/films reviewed, dictated consult to follow. 78 yo w hx of stage IV follicular thyroid ca s/p thyroidectomy/FOREMAN in '06, recurrence in ribs and hips in '15 s/p surgical stabilization and RT (bilateral ribs and left femur), then had SRT at [facility] [place] to upper spine met (pt reports it was T1-T2) in '16, presenting with progressive vertebral metastasis at T1-T2 with epidural extension/cord compression, right paraspinal extension to brachial plexus and destruction. 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 Pending neurology input, would consider MRI L-spine. Emergent palliative RT is indicated to control extensive T1 disease and minimize further neurologic deficits pending our review of prior RT treatment at [facility]. Reviewed risks and benefits with pt who is agreeable to retreatment if deemed feasible. Agree with continuing high dose decadron and GI prophylaxis. Cont close neurologic monitoring and followup. Discussed with Dr. Larson. Will request approval for inpt RT.
[2018-05-01] MEDS: ATORVASTATIN CA 80 MG TABLET (FP) PO SCH (21:39)
[2018-05-01] MEDS: PANTOPRAZOLE 40 MG TABLET (FP) PO SCH (21:40)
[2018-05-01] MEDS: oxyCODONE HCL 5 MG TABLET PO PRN (21:40)
[2018-05-01] MEDS: ACETAMINOPHEN 325 MG TABLET (FP) PO PRN (21:41)
[2018-05-01] MEDS ORDERED: ATORVASTATIN CA 40 MG TABLET (FP) PO SCH (22:00)
[2018-05-02] MEDS: DEXAMETHASONE SOD PHOSPHATE 10 MG/1 ML VIAL IVPB SCH ×5 (00:02→23:23)
[2018-05-02] MEDS: LEVOTHYROXINE NA 75 MCG TABLET (FP) PO SCH (06:04)
--- NOTE | 2018-05-02 06:19 | PN ---
Teaching Attending Note Name of Resident: Magali Larson ATTENDING PHYSICIAN STATEMENT I saw and evaluated the patient. I reviewed the resident's note and discussed the case with the resident. I agree with the resident's findings and plan as documented. SUBJECTIVE: Patient seen and examined 78 year old male with history of metastatic follicular thyroid ca with bone and spine mets. Patient presents with LE weakness (L>R LE ) with T1- spinal cord compression and right upper extremity plexopathy. Patient is s/p pathologic fracture of left femur and s/p RT to T1 vertebrae recently. Past history of thyroidectomy and FOREMAN. 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 Last Vital Signs Temp Pulse Resp BP Pulse Ox 97.7 F 62 18 109/57 L 97 05/02/18 01:43 05/02/18 01:43 05/02/18 01:43 05/02/18 01:43 05/01/18 16:22 HEENT: BRIGITTE, EOM Intact, right Dayan's Oropharynx: No thrush, No mucositis Neck: Supple Nodes: Without adenopathy Breasts: Without masses Cor: RSR, No murmurs, No gallops Lungs: Clear to P&A Abd: Soft, Normal bowel sounds, No organomegaly Ext:No significant edema Skin: No rashes, Integument intact LLE weakness ; RUE plexopathy CBC, BMP 05/01/18 05:10 04/30/18 17:22 OBJECTIVE: Current Medications Generic Name Dose Route Start Last Admin Trade Name Freq PRN Reason Stop Dose Admin Acetaminophen 650 mg 05/01/18 12:16 05/01/18 21:41 Tylenol - PO 650 mg Q4H PRN Administration FEVER Atorvastatin Calcium 80 mg 05/01/18 22:00 05/01/18 21:39 Lipitor - PO 80 mg HS DEAN Administration Dexamethasone Sodium Phosphate 10 mg 05/01/18 18:00 05/02/18 06:04 Decadron Injection - IVPB 10 mg Q6H DEAN Administration Docusate Sodium 100 mg 05/01/18 10:00 05/01/18 11:50 Colace - PO 100 mg DAILY DEAN Administration Enoxaparin Sodium 80 mg 05/01/18 00:45 05/01/18 21:39 Lovenox - SQ 80 mg BID DEAN Administration Gabapentin 300 mg 05/01/18 10:00 05/01/18 21:39 Neurontin - PO 300 mg BID DEAN Administration Dextrose/Sodium Chloride 1,000 mls @ 75 mls/hr 05/01/18 10:00 05/01/18 12:58 D5-1/2ns - IV Not Given ASDIR DEAN Levothyroxine Sodium 150 mcg 05/02/18 07:00 05/02/18 06:04 Synthroid - PO 150 mcg DAILY@0700 DEAN Administration Metoprolol Succinate 50 mg 05/01/18 10:00 05/01/18 11:52 Toprol Xl - PO 50 mg DAILY DEAN Administration Multivitamins/Minerals/Vitamin C 1 tab 05/01/18 10:00 05/01/18 11:52 Tab-A-Vit - PO 1 tab DAILY DEAN Administration Oxycodone HCl 5 mg 05/01/18 12:16 05/01/18 21:40 Roxicodone - PO 5 mg Q4H PRN Administration PAIN LEVEL 6-10 Pantoprazole Sodium 40 mg 05/01/18 20:30 05/01/18 21:40 Protonix - PO 40 mg DAILY DEAN Administration ASSESSMENT AND PLAN: 78 year old male with metastatic follicular thyroid ca with spinal cord compression at T1 and right upper extremity plexopathy. Has LLE weakness and need to assess remainder of spinal cord with Lumbar spine MRI. Prior RT to T1 area by history so need to check prior treatment bello. Has been on BID lovenox for presumed strokes ( multiple lacunar infarcts in left and right thalamus as well as right cerebellum) , and for hyper coagulable state. Would ask neurology to comment on need for full a/c rather than antiplatelet therapy and prophylaxis. Would maintain high dose steroids and GI prophylaxis for now. Would obtain bone scan to look for other bone disease as well as CT imaging .
[2018-05-02] MEDS: oxyCODONE HCL 5 MG TABLET PO PRN ×2 (06:58→17:47)
[2018-05-02] MEDS: ACETAMINOPHEN 325 MG TABLET (FP) PO PRN ×2 (06:59→17:48)
[2018-05-02] MEDS ORDERED: LEVOTHYROXINE NA 150 MCG TABLET PO SCH (07:00)
[2018-05-02] MEDS: MULTIVITAMINS (DAILY MVI) TABLET (FP) PO SCH (09:07)
[2018-05-02] MEDS: GABAPENTIN 300 MG CAPSULE (FP) PO SCH ×2 (09:07→22:06)
[2018-05-02] MEDS: DOCUSATE SODIUM 100 MG CAPSULE (FP) PO SCH (09:08)
[2018-05-02] MEDS: ENOXAPARIN NA (PORCINE) 80 MG/0.8 ML DISP.SYRIN SQ SCH ×2 (09:08→22:06)
[2018-05-02] MEDS: PANTOPRAZOLE 40 MG TABLET (FP) PO SCH (09:08)
--- NOTE | 2018-05-02 11:08 | CONSULT ---
Admitting History and Physical - Primary Care Physician PCP: Angus Clemente - Admission History of Present Illness: Per chart: 78 year old male with history of metastatic follicular thyroid ca with bone and spine mets,presenteds with LE weakness (L>R LE ) with T1- spinal cord compression and right upper extremity plexopathy. Patient is s/p pathologic fracture of left femur and s/p RT to T1 vertebrae recently. Past history of thyroidectomy and FOREMAN. 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 multiple lacunar infarcts in left and right thalamus as well as right cerebellum History Source: Patient Limitations to Obtaining History: No Limitations - Smoking History Smoking history: Never smoked Have you smoked in the past 12 months: No If you are a former smoker, when did you quit?: 2006 - Alcohol/Substance Use Hx Alcohol Use: No - Social History Usual Living Arrangement: Yes: [facility] ([facility]) Occupation: Retired nurse History - Admission Reason For Visit: PAIN OF RIGHT HAND,WEAKNESS OF LEFT FOOT - Diagnostics X-ray: Report Reviewed CT Scan: Report Reviewed - General Mental Status: Alert and Oriented, Awake and Alert, Able to Follow Commands, Anxious Attention: Intact Ability to Follow Directions: Excellent Head/Neck Control: WFL - Hearing Hearing: Normal Hearing Aide: No Speech Evaluation - Communication Primary Language: SETS[place] Communication: Yes: Within Normal Limits Oral Expression Ability: Yes: No Impairment - Speech Production Able to Make Needs Known: Yes: WNL Intelligibility: Yes: WNL - Speech Characteristics Voice Loudness: Normal Voice Pitch: Yes: Normal Voice Phonatory-based Quality: Yes: Normal Speech Clarity: < 100% Nasal Resonance: Normal Articulation: Yes: Precise Rate of Speech: Too Fast (anxious, rapid speech) - Language/Auditory Comprehension Follows: Yes: 2 Stage Simple Commands - Language/Verbal Expression Able to Respond to Simple Queries: Yes: WNL Able to Communicate Wants and Needs: Yes: WNL Functional Communication Status: Yes: WNL - Swallow Evaluation/Bedside Assessment Current Nutritional Intake: Regular, Thin Liquids Oral Secretions: Yes: WFL Dentition: Yes: Adequate Facial Symmetry at Rest: Facial Droop Left (slight) Facial Symmetry on Retraction: Symmetrical Facial Movement: Controlled Against Resistance Opening: Normal Against Resistance Closing: Normal Pucker Lips: Normal Smile: Normal Lingual Movement: Normal, Symmetric Lingual Speed of Movement: Normal Lingual Movement Strgth Against Opposition: Normal Lingual Movement Characteristics: Normal Velopharyngeal Movement: Normal Laryngeal Elevation: WFL Laryngeal Movement: Able to Palpate Rate of Intake: WFL Bolus Size: WFL Labial Seal: WFL Chewing: WFL Oral Prep Time: WFL A-P Transit: WFL Pocketing: None Timing of Swallow: WFL Coughing/Throat Clear: No Change in Voice: No Recommendations - Speech Evaluation, Impression/Plan Impression: Speech, language,cognition, swallowing intact. Anxious, rapid speech production - Disposition Discharge to: [facility] Facility - Dysphagia Impressions/Plan Dysphagia Impressions: No Impairment *Silent aspiration: cannot be R/O at bedside - Recommendations Diet Consistency: Regular Medication Administration: Whole with water Liquids: Thin Liquids
--- NOTE | 2018-05-02 14:37 | PN ---
Progress Note (short form) - Note Progress Note: Has pain in right arm-better with Oxycodone Left foot drop Vital Signs - 24 hr 05/01/18 05/01/18 05/01/18 16:22 18:00 21:00 Temperature 98.0 F 98.0 F 98.3 F Pulse Rate 63 63 65 Respiratory 20 20 18 Rate Blood Pressure 107/57 L 107/50 L 115/76 O2 Sat by Pulse 97 Oximetry (%) 05/02/18 05/02/18 05/02/18 01:43 07:03 09:00 Temperature 97.7 F 97.6 F Pulse Rate 62 60 Respiratory 18 18 Rate Blood Pressure 109/57 L 110/60 O2 Sat by Pulse 97 Oximetry (%) 05/02/18 05/02/18 09:06 14:15 Temperature 97.3 F L 97.9 F Pulse Rate 71 65 Respiratory 18 16 Rate Blood Pressure 116/69 111/57 L O2 Sat by Pulse Oximetry (%) Current Medications Generic Name Dose Route Start Last Admin Trade Name Freq PRN Reason Stop Dose Admin Acetaminophen 650 mg 05/01/18 12:16 05/02/18 06:59 Tylenol - PO 650 mg Q4H PRN Administration FEVER Atorvastatin Calcium 80 mg 05/01/18 22:00 05/01/18 21:39 Lipitor - PO 80 mg HS DEAN Administration Dexamethasone Sodium Phosphate 10 mg 05/01/18 18:00 05/02/18 11:21 Decadron Injection - IVPB 10 mg Q6H DEAN Administration Docusate Sodium 100 mg 05/01/18 10:00 05/02/18 09:08 Colace - PO 100 mg DAILY DEAN Administration Enoxaparin Sodium 80 mg 05/01/18 00:45 05/02/18 09:08 Lovenox - SQ 80 mg BID DEAN Administration Gabapentin 300 mg 05/01/18 10:00 05/02/18 09:07 Neurontin - PO 300 mg BID DEAN Administration Dextrose/Sodium Chloride 1,000 mls @ 75 mls/hr 05/01/18 10:00 05/01/18 12:58 D5-1/2ns - IV Not Given ASDIR DEAN Levothyroxine Sodium 150 mcg 05/02/18 07:00 05/02/18 06:04 Synthroid - PO 150 mcg DAILY@0700 DEAN Administration Metoprolol Succinate 50 mg 05/01/18 10:00 05/02/18 09:08 Toprol Xl - PO 50 mg DAILY DEAN Administration Multivitamins/Minerals/Vitamin C 1 tab 05/01/18 10:00 05/02/18 09:07 Tab-A-Vit - PO 1 tab DAILY DEAN Administration Oxycodone HCl 5 mg 05/01/18 12:16 05/02/18 06:58 Roxicodone - PO 5 mg Q4H PRN Administration PAIN LEVEL 6-10 Pantoprazole Sodium 40 mg 05/01/18 20:30 05/02/18 09:08 Protonix - PO 40 mg DAILY DEAN Administration [id number] Lungs clear Abd- soft, NT No edema left foot drop PLAN iv decadron LS spine MRI ordered may need radiation therapy Iv fluids PT eval pain control Hematology to speak with pt's oncologist- DR Yolanda Marion - [phone] Problem List - Problems (1) Right hand pain Code(s): M79.641 - PAIN IN RIGHT HAND (2) Weakness of left foot Code(s): M21.42 - FLAT FOOT [PES PLANUS] (ACQUIRED), LEFT FOOT (3) Cervical radiculopathy Code(s): M54.12 - RADICULOPATHY, CERVICAL REGION (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
[2018-05-02] MEDS ORDERED: PT OWN MED DRAWER 7, Y5N ONE (17:08)
[2018-05-02] MEDS: DEXTROSE 5%-0.45% SALINE 1,000 ML IV SCH (17:55)
--- NOTE | 2018-05-02 20:22 | CONSULT ---
Consult - text type - Consultation Consultation Note: NEUROLOGY FOLLOW-UP: Events reviewed and discussed with Pt's sister in [place]. On decadron 10 mg IV q 6 hrs. Some improvement in right arm pain but no change in strength. For RT tomorrow to T1 met and right paraspinal mass. Bone scan Identifies the T1 lesion as well as the old left femur lesion and rib lesions. LS changes felt to be more likely degenerative in nature. MRI of LS spine (reviewed): shows moderate DJD with disc dessication and collapse at L3L4 and L4L5 with a buging disc at L3L4 and HNP at L4L5. With striking posterior facet hypertrophy there is severe L3L4 and moderate L4L5 spinal stenosis. No mets are seen EXAM: resting comfortably Right hand weak and atrophic. Left foot drop Sensory level above the breasts. IMP: T1 epidural mass with cord compression and myelopathy Right paraspinal extension with Brachial plexopathy and Dayan's syndrome Left L5 radiculopathy on a degenerative (not neoplastic) basis due to severe LS Spinal stenosis. SUGGEST: Continue decadron Await RT Continue pain regimen Continue lovenox for DVT prophylaxis. Thank you very much, Martin Garza MD
[2018-05-02] MEDS: ATORVASTATIN CA 80 MG TABLET (FP) PO SCH (22:06)
--- NOTE | 2018-05-02 22:11 | PN ---
Progress Note (short form) - Note Progress Note: Radiation Oncology Prior [place] [facility] [place]. Larson, and appreciated. s/p 35Gy stereotactic body RT to T2 vertebra and right posterior 2nd rib in 2016. Also mentioned ?45Gy to posterior 2nd rib by Dr. Vick in 2014. Will need to obtain and review those records as well. Plan to bring for CT simulation tomorrow. RT pending review of above. Cont decadron and neurologic monitoring.
[2018-05-02] MEDS ORDERED: BISACODYL 10 MG SUPP.RECT RC PRN (22:50)
[2018-05-03] MEDS: DEXAMETHASONE SOD PHOSPHATE 4 MG/1 ML VIAL IVPB SCH ×5 (01:12→23:50)
[2018-05-03] MEDS: LEVOTHYROXINE NA 75 MCG TABLET (FP) PO SCH (06:28)
[2018-05-03] MEDS: ACETAMINOPHEN 325 MG TABLET (FP) PO PRN ×3 (08:03→18:05)
[2018-05-03] MEDS: oxyCODONE HCL 5 MG TABLET PO PRN ×3 (08:03→18:05)
[2018-05-03] MEDS: MULTIVITAMINS (DAILY MVI) TABLET (FP) PO SCH (09:07)
[2018-05-03] MEDS: DOCUSATE SODIUM 100 MG CAPSULE (FP) PO SCH (09:07)
[2018-05-03] MEDS: PANTOPRAZOLE 40 MG TABLET (FP) PO SCH (09:07)
[2018-05-03] MEDS: GABAPENTIN 300 MG CAPSULE (FP) PO SCH ×2 (09:07→21:09)
[2018-05-03] MEDS: ENOXAPARIN NA (PORCINE) 80 MG/0.8 ML DISP.SYRIN SQ SCH ×2 (09:08→21:09)
[2018-05-03] MEDS: DEXTROSE 5%-0.45% SALINE 1,000 ML IV SCH (10:10)
--- NOTE | 2018-05-03 14:11 | PN ---
Progress Note (short form) - Note Progress Note: Has pain in right arm-better with Oxycodone Left foot drop Vital Signs - 24 hr 05/03/18 05/03/18 05/03/18 02:00 06:00 08:05 Temperature 97.7 F 97.5 F L 98.2 F Temperature [ Prior to transport] Pulse Rate 54 L 53 L 54 L Pulse Rate [ Prior to transport] Respiratory 20 20 18 Rate Respiratory Rate [Prior to transport] Blood Pressure 111/54 L 114/53 L 142/59 L Blood Pressure [Prior to transport] O2 Sat by Pulse Oximetry (%) 05/03/18 05/03/18 05/03/18 08:35 08:55 14:38 Temperature 98.0 F Temperature [ 98.2 F Prior to transport] Pulse Rate 53 L Pulse Rate [ 54 L Prior to transport] Respiratory 18 Rate Respiratory 18 Rate [Prior to transport] Blood Pressure 103/53 L Blood Pressure 142/59 L [Prior to transport] O2 Sat by Pulse 97 Oximetry (%) 05/03/18 05/03/18 21:00 22:00 Temperature 97.7 F Temperature [ Prior to transport] Pulse Rate 59 L Pulse Rate [ Prior to transport] Respiratory 18 Rate Respiratory Rate [Prior to transport] Blood Pressure 120/65 Blood Pressure [Prior to transport] O2 Sat by Pulse 96 Oximetry (%) Current Medications Generic Name Dose Route Start Last Admin Trade Name Freq PRN Reason Stop Dose Admin Acetaminophen 650 mg 05/01/18 12:16 05/03/18 18:05 Tylenol - PO 650 mg Q4H PRN Administration FEVER Alprazolam 0.5 mg 05/03/18 18:24 Xanax - PO Q4H PRN ANXIETY Atorvastatin Calcium 80 mg 05/01/18 22:00 05/03/18 21:09 Lipitor - PO 80 mg HS DEAN Administration Bisacodyl 10 mg 05/02/18 22:50 05/02/18 23:23 Dulcolax Suppository - RC 10 mg PRN PRN Administration CONSTIPATION Dexamethasone Sodium Phosphate 10 mg 05/02/18 23:10 05/03/18 17:47 Decadron Injection - IVPB 10 mg Q6H DEAN Administration Docusate Sodium 100 mg 05/01/18 10:00 05/03/18 09:07 Colace - PO 100 mg DAILY DEAN Administration Enoxaparin Sodium 80 mg 05/01/18 00:45 05/03/18 21:09 Lovenox - SQ 80 mg BID DEAN Administration Gabapentin 300 mg 05/01/18 10:00 05/03/18 21:09 Neurontin - PO 300 mg BID DEAN Administration Dextrose/Sodium Chloride 1,000 mls @ 75 mls/hr 05/01/18 10:00 05/03/18 10:10 D5-1/2ns - IV Not Given ASDIR DEAN Levothyroxine Sodium 150 mcg 05/02/18 07:00 05/03/18 06:28 Synthroid - PO 150 mcg DAILY@0700 DEAN Administration Metoprolol Succinate 50 mg 05/01/18 10:00 05/03/18 09:07 Toprol Xl - PO 50 mg DAILY DEAN Administration Multivitamins/Minerals/Vitamin C 1 tab 05/01/18 10:00 05/03/18 09:07 Tab-A-Vit - PO 1 tab DAILY DEAN Administration Oxycodone HCl 5 mg 05/01/18 12:16 05/03/18 18:05 Roxicodone - PO 5 mg Q4H PRN Administration PAIN LEVEL 6-10 Pantoprazole Sodium 40 mg 05/01/18 20:30 05/03/18 09:07 Protonix - PO 40 mg DAILY DEAN Administration Laboratory Results - last 24 hr 05/03/18 18:26 POC Glucometer 211 Lungs clear Abd- soft, NT No edema left foot drop PLAN iv decadron LS spine MRI noted repeat UA and cultures- possible contaminant will need radiation therapy Iv fluids PT eval pain control Hematology to speak with pt's oncologist- DR Yolanda Marion - [phone] Problem List - Problems (1) Right hand pain Code(s): M79.641 - PAIN IN RIGHT HAND (2) Weakness of left foot Code(s): M21.42 - FLAT FOOT [PES PLANUS] (ACQUIRED), LEFT FOOT (3) Cervical radiculopathy Code(s): M54.12 - RADICULOPATHY, CERVICAL REGION (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
--- NOTE | 2018-05-03 15:28 | PN ---
Progress Note (short form) - Note Progress Note: Radiation Oncology Prior RT records from [facility] [place] obtained by Dr. Larson, and appreciated. s/p 35Gy stereotactic body RT to T2 vertebra and right posterior 2nd rib in 2016. Also mentioned ?45Gy to posterior 2nd rib by Dr. Vick in 2014. Will need to obtain and review those records as well. Had planning CT today. Received treatment summary from 2015 (45Gy) but still need dosimetry plan which was requested. Cont decadron and neurologic monitoring. Awaiting prior records to decide if possible to safely give deliver more RT to previously treated spine.
--- NOTE | 2018-05-03 17:18 | CONS ---
DATE OF CONSULTATION: 05/01/2018 REFERRING PHYSICIAN: Og Roberson MD REASON FOR CONSULTATION: Spinal cord compression. 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 He apparently did well until 2014 when he presented with recurrence in the ribs and hips associated with a left femur pathologic fracture requiring surgical stabilization and radiation therapy to the left femur and bilateral ribs. In 2015, he had progressive spinal metastasis at T1 to T2, as per the patient, and received stereotactic radiation therapy in [address] at [facility]. 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 He has had progressive numbness, pain, and weakness of the right arm. He also noted recently to have a left foot drop and was sent to the emergency room for further evaluation. MRI of the cervical and thoracic spine showed a large destructive mass involving the T1 and T2 vertebral levels, associated with epidural extension and spinal cord compression as well as right paraspinal extension into the soft tissues with destruction of the rib and additional metastatic lesion in the T3 vertebral body. PAST MEDICAL HISTORY: Prior radiotherapy treatment to be clarified; deep venous thrombosis of the left lower extremity; hypertension; GERD; left hip open reduction internal fixation and revision in 2014. ALLERGIES: No known drug allergies. CURRENT MEDICATIONS: Decadron 10 mg IV q.6, Lovenox, Neurontin, Toprol XL, Colace, Lipitor, multivitamin, Protonix, Synthroid. SOCIAL HISTORY: A retired nurse. He does not smoke or consume excessive alcohol. He currently resides at the senior care. 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 FAMILY HISTORY: Thyroid disorder in his mother, sister, and brother. No history of malignancy. REVIEW OF SYSTEMS: Denies headache, dizziness, incontinence. PHYSICAL EXAMINATION: General: Anxious appearing gentleman, well-developed, well-nourished. Vital Signs: Temperature 98.0, blood pressure 107/57, pulse 63, respiratory rate 20, SAO2 97% on room air. HEENT: Normocephalic, atraumatic. Moist mucous membranes. Anicteric sclerae. Clear oral cavity, without lesions. Neck: No thyromegaly or cervical adenopathy. Chest: Clear bilaterally. Cardiovascular: Regular. Abdomen: Soft, nontender. Extremities: Mild muscular atrophy in the right upper extremity. Normal range of motion. No significant edema. Musculoskeletal: Moderate tenderness in the upper thoracic region of the spine. No paraspinal mass. Neurologic: Alert and oriented x3. Cranial nerve examination reveals right myosis and ptosis, sensation to light touch is diminished in the upper extremities. Motor: Mild right pronator drift, decreased right bagel maker 4/5 compared to 5/5. Left foot drop. Left dorsiflexion 3/5. Right upper and lower extremity strength is 5/5. Gait was not tested for safety. RADIOLOGIC DATA: See HPI. LABORATORY DATA: CBC, Chemistries, Liver function tests within normal limits. 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 He has a left foot drop that needs further evaluation. I would recommend completing the evaluation of the lower spine with MRI to rule out a lower spine lesion. Given the extent of the disease and current neurologic deficits, emergent palliative radiation therapy needs to be considered to minimize further neurologic compromise and deficits. We will need to review the prior radiotherapy treatments including most recent stereotactic treatments at [facility], which included the levels of the spine that are currently involved. I spoke with the patient at length regarding the prognosis as well as risks/benefits of radiotherapy treatment in the setting of prior treatment. I emphasized that we will need to review the prior treatment records before we can determine how much more radiation if any can be safely given. He was agreeable to proceeding with retreatment if deemed feasible. PLAN: Obtain prior radiotherapy records for review. Continue high-dose Decadron and GI prophylaxis. Continue close neurologic monitoring and follow up. The above was discussed with the house staff, Dr. Larson. We will request inpatient treatment. TOYA DIAMOND M.D. GRETTA/[id number] MTDD
[2018-05-03] MEDS ORDERED: ALPRAZolam 0.25 MG TABLET PO PRN (18:24)
--- NOTE | 2018-05-03 21:08 | PN ---
Progress Note (short form) - Note Progress Note: Patient seen and examined Denies any complaints AFVSS Cor: RSR, No murmurs, No gallops Lungs: Clear to P&A Abd: Soft, Normal bowel sounds, No organomegaly Ext:No significant edema Rt. 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 Has LLE weakness Prior RT to T1 area by history so need to check prior treatment bello. Has been on BID lovenox for presumed strokes ( multiple lacunar infarcts in left and right thalamus as well as right cerebellum) , and for hyper coagulable state. On steroids--change to 4mg Q 6h RT planning ongoing On lovenix for hypercoagulable state of malignancy/ h/o strokes
[2018-05-03] MEDS: ATORVASTATIN CA 80 MG TABLET (FP) PO SCH (21:09)
[2018-05-04] MEDS: DEXAMETHASONE SOD PHOSPHATE 4 MG/1 ML VIAL IVPB SCH ×4 (05:32→21:54)
[2018-05-04] MEDS: LEVOTHYROXINE NA 75 MCG TABLET (FP) PO SCH (06:11)
[2018-05-04 08:26] LABS: ANION GAP 10 MMOL/L (8-16); BLOOD UREA NITROGEN 23 mg/dL (7-18); CALCIUM 7.6 mg/dL (8.5-10.1); CHLORIDE 106 mmol/L (98-107); CO2 21 mmol/L (21-32); CREATININE 0.6 mg/dL (0.55-1.3); GLUCOSE,RANDOM 116 mg/dL (74-106); POTASSIUM 4.5 mmol/L (3.5-5.1); SODIUM 137 mmol/L (136-145)
[2018-05-04] MEDS: oxyCODONE HCL 5 MG TABLET PO PRN ×2 (09:07→21:54)
[2018-05-04] MEDS: ACETAMINOPHEN 325 MG TABLET (FP) PO PRN (09:08)
[2018-05-04] MEDS: ENOXAPARIN NA (PORCINE) 80 MG/0.8 ML DISP.SYRIN SQ SCH ×2 (09:10→21:54)
[2018-05-04] MEDS: GABAPENTIN 300 MG CAPSULE (FP) PO SCH ×2 (09:11→21:55)
[2018-05-04] MEDS: MULTIVITAMINS (DAILY MVI) TABLET (FP) PO SCH (09:11)
[2018-05-04] MEDS: DOCUSATE SODIUM 100 MG CAPSULE (FP) PO SCH (09:11)
[2018-05-04] MEDS: PANTOPRAZOLE 40 MG TABLET (FP) PO SCH (09:11)
--- NOTE | 2018-05-04 13:37 | PN ---
Progress Note (short form) - Note Progress Note: pt seen/ examined chart reviewed feels comfortable. no distress relatively feels better Vital Signs Temp 97.4 F L 05/04/18 06:26 Pulse 52 L 05/04/18 06:26 Resp 18 05/04/18 10:00 BP 118/62 05/04/18 06:26 Pulse Ox 97 05/04/18 10:00 Intake & Output 05/03/18 05/04/18 05/04/18 23:59 11:59 23:59 Intake Total 410 50 550 Balance 410 50 550 Weight 190 lb Intake: IVPB 50 50 Oral 360 550 Other: Voiding Method Bedpan Bedpan # Unmeasured Voids Void 2 1 2 Bowel Movement Yes Yes Yes # Bowel Movements 1 1 Height 5 ft 8 in Body Mass Index (BMI) 28.8 Active Medications Acetaminophen (Tylenol -) 650 mg PO Q4H PRN PRN Reason: FEVER Last Admin: 05/04/18 09:08 Dose: 650 mg Alprazolam (Xanax -) 0.5 mg PO Q4H PRN PRN Reason: ANXIETY Atorvastatin Calcium (Lipitor -) 80 mg PO HS [facility] Last Admin: 05/03/18 21:09 Dose: 80 mg Bisacodyl (Dulcolax Suppository -) 10 mg RC PRN PRN PRN Reason: CONSTIPATION Last Admin: 05/02/18 23:23 Dose: 10 mg Dexamethasone Sodium Phosphate (Decadron Injection -) 4 mg IVPB Q6H [facility] Last Admin: 05/04/18 11:11 Dose: 4 mg Docusate Sodium (Colace -) 100 mg PO DAILY [facility] Last Admin: 05/04/18 09:11 Dose: 100 mg Enoxaparin Sodium (Lovenox -) 80 mg SQ BID [facility] Last Admin: 05/04/18 09:10 Dose: 80 mg Gabapentin (Neurontin -) 300 mg PO BID [facility] Last Admin: 05/04/18 09:11 Dose: 300 mg Dextrose/Sodium Chloride (D5-1/2ns -) 1,000 mls @ 75 mls/hr IV ASDIR [facility] Last Admin: 05/03/18 10:10 Dose: Not Given Levothyroxine Sodium (Synthroid -) 150 mcg PO DAILY@0700 [facility] Last Admin: 05/04/18 06:11 Dose: 150 mcg Metoprolol Succinate (Toprol Xl -) 50 mg PO DAILY [facility] Last Admin: 05/04/18 09:11 Dose: 50 mg Multivitamins/Minerals/Vitamin C (Tab-A-Vit -) 1 tab PO DAILY [facility] Last Admin: 05/04/18 09:11 Dose: 1 tab Pantoprazole Sodium (Protonix -) 40 mg PO DAILY [facility] Last Admin: 05/04/18 09:11 Dose: 40 mg CBC, BMP 05/01/18 05:10 05/04/18 06:30 Microbiology 04/30/18 20:07 Urine Culture - Preliminary Urine - Urine Clean Catch Strep Agalactiae Group B Staphylococcus Coagulase Neg Group D Strep Or Entero Coccus Physical Lungs clear Abd- soft, NT No edema left foot drop. 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
[2018-05-04] MEDS: DEXTROSE 5%-0.45% SALINE 1,000 ML IV SCH (15:13)
--- NOTE | 2018-05-04 16:43 | PN ---
Progress Note (short form) - Note Progress Note: NEUROLOGY FOLLOW-P Events reviewed. Patient examined. Decreased arm pain. Grasp slightly stronger. On decadron. Exam: Ox3. However, patient is somewhat confused, especially about recent events. Comfortable. Right grasp, intrinsics, APB 4-/5 with atrophy. Left ankle Dorsiflexion, eversion, 2/5. Inversion 4-/5. Brisk reflexes. Right Babinski. 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. Follow carefully on Decadron with slow out patient taper ( supervised by Radiation oncology?) Neuro follow-up as out patient. Thank you very much, Martin Garza MD
--- NOTE | 2018-05-04 20:24 | PN ---
Progress Note, Physician Chief Complaint: R arm weakness History of Present Illness: No new complaints. Has peristent RUE weakness. - Current Medication List Current Medications: Active Medications Acetaminophen (Tylenol -) 650 mg PO Q4H PRN PRN Reason: FEVER Last Admin: 05/04/18 09:08 Dose: 650 mg Alprazolam (Xanax -) 0.5 mg PO Q4H PRN PRN Reason: ANXIETY Atorvastatin Calcium (Lipitor -) 80 mg PO HS [facility] [place] Last Admin: 05/03/18 21:09 Dose: 80 mg Bisacodyl (Dulcolax Suppository -) 10 mg RC PRN PRN PRN Reason: CONSTIPATION Last Admin: 05/02/18 23:23 Dose: 10 mg Dexamethasone Sodium Phosphate (Decadron Injection -) 4 mg IVPB Q6H [facility] [place] Last Admin: 05/04/18 16:41 Dose: 4 mg Docusate Sodium (Colace -) 100 mg PO DAILY [facility] [place] Last Admin: 05/04/18 09:11 Dose: 100 mg Enoxaparin Sodium (Lovenox -) 80 mg SQ BID [facility] [place] Last Admin: 05/04/18 09:10 Dose: 80 mg Gabapentin (Neurontin -) 300 mg PO BID [facility] [place] Last Admin: 05/04/18 09:11 Dose: 300 mg Dextrose/Sodium Chloride (D5-1/2ns -) 1,000 mls @ 75 mls/hr IV ASDIR [facility] [place] Last Admin: 05/04/18 15:13 Dose: Not Given Levothyroxine Sodium (Synthroid -) 150 mcg PO DAILY@0700 [facility] [place] Last Admin: 05/04/18 06:11 Dose: 150 mcg Metoprolol Succinate (Toprol Xl -) 50 mg PO DAILY [facility] [place] Last Admin: 05/04/18 09:11 Dose: 50 mg Multivitamins/Minerals/Vitamin C (Tab-A-Vit -) 1 tab PO DAILY [facility] [place] Last Admin: 05/04/18 09:11 Dose: 1 tab Pantoprazole Sodium (Protonix -) 40 mg PO DAILY [facility] [place] Last Admin: 05/04/18 09:11 Dose: 40 mg - Objective Vital Signs: Vital Signs Temperature 97.8 F 05/04/18 16:50 Pulse Rate 51 L 05/04/18 16:50 Respiratory Rate 18 05/04/18 16:50 Blood Pressure 121/55 L 05/04/18 16:50 O2 Sat by Pulse Oximetry (%) 98 05/04/18 19:51 Constitutional: Yes: Well Nourished Eyes: Yes: Conjunctiva Clear Cardiovascular: Yes: Regular Rate and Rhythm Respiratory: Yes: Regular, CTA Bilaterally Gastrointestinal: Yes: WNL, Soft Edema: No Neurological: Yes: Alert ...Motor Strength: RUE (4/5 RUE, 5/5 LUE) Labs: CBC, BMP 05/01/18 05:10 05/04/18 06:30 INR, PTT INR 1.03 (0.83-1.09) 04/30/18 17:22 Assessment/Plan 78M with metastatic hurthe cell carcinoma c/b spinal cord compression at T1 with right upper extremity plexopathy. Undergoing RT planning. On decadron with GI ppx On Lovenox for presumed hypercoaguable state (multiple lacunar infarcts in b/l thalamus and right cerebellum)
[2018-05-04 21:02] LABS: URINE APPEARANCE CLEAR; URINE BILIRUBIN NEGATIVE (<2.0 mg/dL); URINE COLOR STRAW; URINE GLUCOSE (UA) NEGATIVE (NEGATIVE); URINE KETONE NEGATIVE (NEGATIVE); URINE LEUK ESTERASE 2+ (NEGATIVE); URINE NITRITE NEGATIVE (NEGATIVE); URINE PROTEIN NEGATIVE (NEGATIVE); URINE UROBILINOGEN NEGATIVE mg/dL (0.2-1.0)
[2018-05-04 21:25] LABS: URINE BACTERIA RARE /hpf (NONE SEEN)
[2018-05-04] MEDS: ATORVASTATIN CA 80 MG TABLET (FP) PO SCH (21:54)
[2018-05-05] MEDS: DEXAMETHASONE SOD PHOSPHATE 4 MG/1 ML VIAL IVPB SCH ×4 (02:50→20:56)
[2018-05-05] MEDS: LEVOTHYROXINE NA 75 MCG TABLET (FP) PO SCH (06:09)
[2018-05-05] MEDS: PANTOPRAZOLE 40 MG TABLET (FP) PO SCH (09:22)
[2018-05-05] MEDS: MULTIVITAMINS (DAILY MVI) TABLET (FP) PO SCH (09:22)
[2018-05-05] MEDS: GABAPENTIN 300 MG CAPSULE (FP) PO SCH ×2 (09:22→20:59)
[2018-05-05] MEDS: ENOXAPARIN NA (PORCINE) 80 MG/0.8 ML DISP.SYRIN SQ SCH ×2 (09:23→20:59)
[2018-05-05] MEDS: DOCUSATE SODIUM 100 MG CAPSULE (FP) PO SCH (09:23)
--- NOTE | 2018-05-05 11:47 | PN ---
Progress Note (short form) - Note Progress Note: comfortable no new issues overall feels better Vital Signs Temp 98 F 05/05/18 09:34 Pulse 62 05/05/18 09:34 Resp 18 05/05/18 09:34 BP 123/74 05/05/18 09:34 Pulse Ox 97 05/05/18 09:36 Intake & Output 05/04/18 05/04/18 05/05/18 11:59 23:59 11:59 Intake Total 50 790 150 Balance 50 790 150 Intake: IVPB 50 50 Oral 790 100 Other: Voiding Method Bedpan Bedpan Bedpan # Unmeasured Voids Void 1 2 Bowel Movement Yes Yes # Bowel Movements 1 2 Active Medications Acetaminophen (Tylenol -) 650 mg PO Q4H PRN PRN Reason: FEVER Last Admin: 05/04/18 09:08 Dose: 650 mg Alprazolam (Xanax -) 0.5 mg PO Q4H PRN PRN Reason: ANXIETY Atorvastatin Calcium (Lipitor -) 80 mg PO HS [facility] Last Admin: 05/04/18 21:54 Dose: 80 mg Bisacodyl (Dulcolax Suppository -) 10 mg RC PRN PRN PRN Reason: CONSTIPATION Last Admin: 05/02/18 23:23 Dose: 10 mg Dexamethasone Sodium Phosphate (Decadron Injection -) 4 mg IVPB Q6H [facility] Last Admin: 05/05/18 09:23 Dose: 4 mg Docusate Sodium (Colace -) 100 mg PO DAILY [facility] Last Admin: 05/05/18 09:23 Dose: 100 mg Enoxaparin Sodium (Lovenox -) 80 mg SQ BID [facility] Last Admin: 05/05/18 09:23 Dose: 80 mg Gabapentin (Neurontin -) 300 mg PO BID [facility] Last Admin: 05/05/18 09:22 Dose: 300 mg Dextrose/Sodium Chloride (D5-1/2ns -) 1,000 mls @ 75 mls/hr IV ASDIR [facility] Last Admin: 05/04/18 15:13 Dose: Not Given Levothyroxine Sodium (Synthroid -) 150 mcg PO DAILY@0700 [facility] Last Admin: 05/05/18 06:09 Dose: 150 mcg Metoprolol Succinate (Toprol Xl -) 50 mg PO DAILY [facility] Last Admin: 05/05/18 09:23 Dose: 50 mg Multivitamins/Minerals/Vitamin C (Tab-A-Vit -) 1 tab PO DAILY [facility] Last Admin: 05/05/18 09:22 Dose: 1 tab Oxycodone HCl (Roxicodone -) 5 mg PO Q4H PRN PRN Reason: PAIN LEVEL 6-10 Last Admin: 05/04/18 21:54 Dose: 5 mg Pantoprazole Sodium (Protonix -) 40 mg PO DAILY [facility] Last Admin: 05/05/18 09:22 Dose: 40 mg CBC, BMP 05/01/18 05:10 05/04/18 06:30 Physical Lungs clear Abd- soft, NT No edema left foot drop. 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
[2018-05-05] MEDS: DEXTROSE 5%-0.45% SALINE 1,000 ML IV SCH (15:39)
[2018-05-05] MEDS: ATORVASTATIN CA 80 MG TABLET (FP) PO SCH (20:59)
[2018-05-05] MEDS: oxyCODONE HCL 5 MG TABLET PO PRN (21:00)
--- NOTE | 2018-05-05 22:42 | PN ---
Progress Note, Physician Chief Complaint: R arm weakness History of Present Illness: Feels that EDGAR is a little stronger. No new complaints. - Current Medication List Current Medications: Active Medications Acetaminophen (Tylenol -) 650 mg PO Q4H PRN PRN Reason: FEVER Last Admin: 05/04/18 09:08 Dose: 650 mg Alprazolam (Xanax -) 0.5 mg PO Q4H PRN PRN Reason: ANXIETY Atorvastatin Calcium (Lipitor -) 80 mg PO HS [facility] Last Admin: 05/05/18 20:59 Dose: 80 mg Bisacodyl (Dulcolax Suppository -) 10 mg RC PRN PRN PRN Reason: CONSTIPATION Last Admin: 05/02/18 23:23 Dose: 10 mg Dexamethasone Sodium Phosphate (Decadron Injection -) 4 mg IVPB Q6H [facility] Last Admin: 05/05/18 20:56 Dose: 4 mg Docusate Sodium (Colace -) 100 mg PO DAILY [facility] Last Admin: 05/05/18 09:23 Dose: 100 mg Enoxaparin Sodium (Lovenox -) 80 mg SQ BID [facility] Last Admin: 05/05/18 20:59 Dose: 80 mg Gabapentin (Neurontin -) 300 mg PO BID [facility] Last Admin: 05/05/18 20:59 Dose: 300 mg Dextrose/Sodium Chloride (D5-1/2ns -) 1,000 mls @ 75 mls/hr IV ASDIR [facility] Last Admin: 05/05/18 15:39 Dose: Not Given Levothyroxine Sodium (Synthroid -) 150 mcg PO DAILY@0700 [facility] Last Admin: 05/05/18 06:09 Dose: 150 mcg Metoprolol Succinate (Toprol Xl -) 50 mg PO DAILY [facility] Last Admin: 05/05/18 09:23 Dose: 50 mg Multivitamins/Minerals/Vitamin C (Tab-A-Vit -) 1 tab PO DAILY [facility] Last Admin: 05/05/18 09:22 Dose: 1 tab Oxycodone HCl (Roxicodone -) 5 mg PO Q4H PRN PRN Reason: PAIN LEVEL 6-10 Last Admin: 05/05/18 21:00 Dose: 5 mg Pantoprazole Sodium (Protonix -) 40 mg PO DAILY [facility] Last Admin: 05/05/18 09:22 Dose: 40 mg - Objective Vital Signs: Vital Signs Temperature 98.3 F 05/05/18 14:52 Pulse Rate 57 L 05/05/18 14:52 Respiratory Rate 18 05/05/18 14:52 Blood Pressure 121/67 05/05/18 14:52 O2 Sat by Pulse Oximetry (%) 97 05/05/18 20:01 Constitutional: Yes: No Distress Eyes: Yes: Conjunctiva Clear Cardiovascular: Yes: WNL, Regular Rate and Rhythm Respiratory: Yes: WNL, Regular, CTA Bilaterally Gastrointestinal: Yes: WNL, Normal Bowel Sounds, Soft Edema: No ...Motor Strength: LUE (5/5), LLE, RUE (4/5) Labs: CBC, BMP 05/01/18 05:10 05/04/18 06:30 INR, PTT INR 1.03 (0.83-1.09) 04/30/18 17:22 Assessment/Plan 78M with metastatic hurthe cell carcinoma c/b spinal cord compression at T1 with right upper extremity plexopathy. Undergoing RT planning. On decadron with GI ppx On Lovenox for presumed hypercoaguable state (multiple lacunar infarcts in b/l thalamus and right cerebellum)
[2018-05-06] MEDS: DEXAMETHASONE SOD PHOSPHATE 4 MG/1 ML VIAL IVPB SCH ×4 (03:02→20:14)
[2018-05-06] MEDS: LEVOTHYROXINE NA 75 MCG TABLET (FP) PO SCH (06:52)
[2018-05-06] MEDS: oxyCODONE HCL 5 MG TABLET PO PRN ×2 (09:11→13:54)
[2018-05-06] MEDS: ENOXAPARIN NA (PORCINE) 80 MG/0.8 ML DISP.SYRIN SQ SCH ×2 (09:11→21:04)
[2018-05-06] MEDS: DOCUSATE SODIUM 100 MG CAPSULE (FP) PO SCH (09:11)
[2018-05-06] MEDS: GABAPENTIN 300 MG CAPSULE (FP) PO SCH ×2 (09:11→21:04)
[2018-05-06] MEDS: MULTIVITAMINS (DAILY MVI) TABLET (FP) PO SCH (09:12)
[2018-05-06] MEDS: PANTOPRAZOLE 40 MG TABLET (FP) PO SCH (09:12)
[2018-05-06] MEDS: ACETAMINOPHEN 325 MG TABLET (FP) PO PRN ×2 (09:12→13:56)
--- NOTE | 2018-05-06 11:14 | PN ---
Progress Note, [employer] - Note Progress Note: Selected Entries 05/01/18 05/01/18 05/01/18 06:52 11:00 14:11 Breakfast Lunch Supper Temperature 97.7 F 98.4 F 98.3 F 05/01/18 05/01/18 05/01/18 16:22 18:00 20:07 Breakfast Lunch Supper 75% Temperature 98.0 F 98.0 F 05/01/18 05/02/18 05/02/18 21:00 01:43 07:03 Breakfast Lunch Supper Temperature 98.3 F 97.7 F 97.6 F 05/02/18 05/05/18 05/05/18 09:06 02:00 06:13 Breakfast Lunch Supper Temperature 97.3 F L 97.8 F 97.9 F 05/05/18 05/05/18 05/05/18 09:34 10:04 14:42 Breakfast 100% Lunch 100% Supper Temperature 98 F 05/05/18 05/05/18 05/05/18 14:52 22:00 23:18 Breakfast Lunch Supper 100% Temperature 98.3 F 97.8 F 05/06/18 05/06/18 05/06/18 02:15 06:00 09:00 Breakfast Lunch Supper Temperature 97.7 F 97.8 F 98.2 F Laboratory Tests 05/01/18 05:10 WBC 7.6 Tolerating diet with good appetite. No further f/u indicated.
[2018-05-06] MEDS: DEXTROSE 5%-0.45% SALINE 1,000 ML IV SCH (11:35)
--- NOTE | 2018-05-06 13:58 | PN ---
Progress Note (short form) - Note Progress Note: Pt seen/ examined comfortable overall feels ok Vital Signs Temp 98 F 05/05/18 09:34 Pulse 62 05/05/18 09:34 Resp 18 05/05/18 09:34 BP 123/74 05/05/18 09:34 Pulse Ox 97 05/05/18 09:36 Intake & Output 05/04/18 05/04/18 05/05/18 11:59 23:59 11:59 Intake Total 50 790 150 Balance 50 790 150 Intake: IVPB 50 50 Oral 790 100 Other: Voiding Method Bedpan Bedpan Bedpan # Unmeasured Voids Void 1 2 Bowel Movement Yes Yes # Bowel Movements 1 2 Active Medications Acetaminophen (Tylenol -) 650 mg PO Q4H PRN PRN Reason: FEVER Last Admin: 05/04/18 09:08 Dose: 650 mg Alprazolam (Xanax -) 0.5 mg PO Q4H PRN PRN Reason: ANXIETY Atorvastatin Calcium (Lipitor -) 80 mg PO [facility] Last Admin: 05/04/18 21:54 Dose: 80 mg Bisacodyl (Dulcolax Suppository -) 10 mg RC PRN PRN PRN Reason: CONSTIPATION Last Admin: 05/02/18 23:23 Dose: 10 mg Dexamethasone Sodium Phosphate (Decadron Injection -) 4 mg IVPB Q6H [facility] Last Admin: 05/05/18 09:23 Dose: 4 mg Docusate Sodium (Colace -) 100 mg PO DAILY [facility] Last Admin: 05/05/18 09:23 Dose: 100 mg Enoxaparin Sodium (Lovenox -) 80 mg SQ BID [facility] Last Admin: 05/05/18 09:23 Dose: 80 mg Gabapentin (Neurontin -) 300 mg PO BID [facility] Last Admin: 05/05/18 09:22 Dose: 300 mg Dextrose/Sodium Chloride (D5-1/2ns -) 1,000 mls @ 75 mls/hr IV ASDIR [facility] Last Admin: 05/04/18 15:13 Dose: Not Given Levothyroxine Sodium (Synthroid -) 150 mcg PO DAILY@0700 [facility] Last Admin: 05/05/18 06:09 Dose: 150 mcg Metoprolol Succinate (Toprol Xl -) 50 mg PO DAILY [facility] Last Admin: 05/05/18 09:23 Dose: 50 mg Multivitamins/Minerals/Vitamin C (Tab-A-Vit -) 1 tab PO DAILY [facility] Last Admin: 05/05/18 09:22 Dose: 1 tab Oxycodone HCl (Roxicodone -) 5 mg PO Q4H PRN PRN Reason: PAIN LEVEL 6-10 Last Admin: 05/04/18 21:54 Dose: 5 mg Pantoprazole Sodium (Protonix -) 40 mg PO DAILY [facility] Last Admin: 05/05/18 09:22 Dose: 40 mg CBC, BMP 05/01/18 05:10 05/04/18 06:30 Physical Lungs clear Abd- soft, NT No edema left foot drop. 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
[2018-05-06] MEDS: ATORVASTATIN CA 80 MG TABLET (FP) PO SCH (21:04)
[2018-05-07] MEDS: DEXAMETHASONE SOD PHOSPHATE 4 MG/1 ML VIAL IVPB SCH ×3 (03:12→14:43)
[2018-05-07] MEDS: LEVOTHYROXINE NA 75 MCG TABLET (FP) PO SCH (06:01)
[2018-05-07] MEDS ORDERED: PT OWN MED DRAWER 7, Y5N ONE (09:26)
[2018-05-07] MEDS: GABAPENTIN 300 MG CAPSULE (FP) PO SCH ×2 (09:34→21:04)
[2018-05-07] MEDS: ENOXAPARIN NA (PORCINE) 80 MG/0.8 ML DISP.SYRIN SQ SCH ×2 (09:34→21:03)
[2018-05-07] MEDS: DOCUSATE SODIUM 100 MG CAPSULE (FP) PO SCH (09:34)
[2018-05-07] MEDS: PANTOPRAZOLE 40 MG TABLET (FP) PO SCH (09:34)
[2018-05-07] MEDS: MULTIVITAMINS (DAILY MVI) TABLET (FP) PO SCH (09:34)
[2018-05-07] MEDS: oxyCODONE HCL 5 MG TABLET PO PRN ×2 (10:24→20:15)
[2018-05-07] MEDS: ACETAMINOPHEN 325 MG TABLET (FP) PO PRN ×2 (10:26→20:22)
--- NOTE | 2018-05-07 11:45 | PN ---
Progress Note (short form) - Note Progress Note: Pt seen/ examined comfortable overall feels better Vital Signs Temp 98 F 05/05/18 09:34 Pulse 62 05/05/18 09:34 Resp 18 05/05/18 09:34 BP 123/74 05/05/18 09:34 Pulse Ox 97 05/05/18 09:36 Intake & Output 05/04/18 05/04/18 05/05/18 11:59 23:59 11:59 Intake Total 50 790 150 Balance 50 790 150 Intake: IVPB 50 50 Oral 790 100 Other: Voiding Method Bedpan Bedpan Bedpan # Unmeasured Voids Void 1 2 Bowel Movement Yes Yes # Bowel Movements 1 2 Active Medications Acetaminophen (Tylenol -) 650 mg PO Q4H PRN PRN Reason: FEVER Last Admin: 05/04/18 09:08 Dose: 650 mg Alprazolam (Xanax -) 0.5 mg PO Q4H PRN PRN Reason: ANXIETY Atorvastatin Calcium (Lipitor -) [address] [facility] Last Admin: 05/04/18 21:54 Dose: 80 mg Bisacodyl (Dulcolax Suppository -) 10 mg RC PRN PRN PRN Reason: CONSTIPATION Last Admin: 05/02/18 23:23 Dose: 10 mg Dexamethasone Sodium Phosphate (Decadron Injection -) 4 mg IVPB Q6H [facility] Last Admin: 05/05/18 09:23 Dose: 4 mg Docusate Sodium (Colace -) 100 mg PO DAILY [facility] Last Admin: 05/05/18 09:23 Dose: 100 mg Enoxaparin Sodium (Lovenox -) 80 mg SQ BID [facility] Last Admin: 05/05/18 09:23 Dose: 80 mg Gabapentin (Neurontin -) 300 mg PO BID [facility] Last Admin: 05/05/18 09:22 Dose: 300 mg Dextrose/Sodium Chloride (D5-1/2ns -) 1,000 mls @ 75 mls/hr IV ASDIR [facility] Last Admin: 05/04/18 15:13 Dose: Not Given Levothyroxine Sodium (Synthroid -) 150 mcg PO DAILY@0700 [facility] Last Admin: 05/05/18 06:09 Dose: 150 mcg Metoprolol Succinate (Toprol Xl -) 50 mg PO DAILY [facility] Last Admin: 05/05/18 09:23 Dose: 50 mg Multivitamins/Minerals/Vitamin C (Tab-A-Vit -) 1 tab PO DAILY [facility] Last Admin: 05/05/18 09:22 Dose: 1 tab Oxycodone HCl (Roxicodone -) 5 mg PO Q4H PRN PRN Reason: PAIN LEVEL 6-10 Last Admin: 05/04/18 21:54 Dose: 5 mg Pantoprazole Sodium (Protonix -) 40 mg PO DAILY [facility] Last Admin: 05/05/18 09:22 Dose: 40 mg CBC, BMP 05/01/18 05:10 05/04/18 06:30 Physical Lungs clear Abd- soft, NT No edema left foot drop. 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
--- NOTE | 2018-05-07 16:34 | PN ---
Progress Note (short form) - Note Progress Note: feels as if strength is returning to right arm, and overall feels better. requests to start physical therapy. aware that documents from dr. vick are still pending denies chest pain, sob, mental status changes, cough, dysuria, fevers. Vital Signs Temperature 98.5 F 05/07/18 14:34 Pulse Rate 61 05/07/18 14:34 Respiratory Rate 18 05/07/18 14:34 Blood Pressure 117/63 05/07/18 14:34 O2 Sat by Pulse Oximetry (%) 94 L 05/07/18 09:00 PE: NAD, kelsie, eomi improved hand snuff grinder in right hand, but overall UE strength remains the same as admission abd soft nd, nt left foot eversion CBCD WBC 7.6 K/mm3 (4.0-10.0) 05/01/18 05:10 RBC 4.05 M/mm3 (4.00-5.60) 05/01/18 05:10 Hgb 11.9 GM/dL (11.7-16.9) 05/01/18 05:10 Hct 36.4 % (35.4-49) 05/01/18 05:10 MCV 89.9 fl (80-96) 05/01/18 05:10 MCHC 32.6 g/dl (32.0-35.9) 05/01/18 05:10 RDW 16.0 % (11.9-15.9) H 05/01/18 05:10 Plt Count 346 K/MM3 (134-434) 05/01/18 05:10 MPV 8.0 fl (7.5-11.1) 05/01/18 05:10 CMP Sodium 137 mmol/L (136-145) 05/04/18 06:30 Potassium 4.5 mmol/L (3.5-5.1) 05/04/18 06:30 Chloride 106 mmol/L (98-107) 05/04/18 06:30 Carbon Dioxide 21 mmol/L (21-32) 05/04/18 06:30 Anion Gap 10 MMOL/L (8-16) 05/04/18 06:30 BUN 23 mg/dL (7-18) H 05/04/18 06:30 Creatinine 0.6 mg/dL (0.55-1.3) 05/04/18 06:30 Creat Clearance w eGFR > 60 (>60) 05/04/18 06:30 Calcium 7.6 mg/dL (8.5-10.1) L 05/04/18 06:30 Total Bilirubin 0.6 mg/dL (0.2-1) 04/30/18 17:22 AST 19 U/L (15-37) 04/30/18 17:22 ALT 32 U/L (13-61) 04/30/18 17:22 Alkaline Phosphatase 97 U/L (45-117) 04/30/18 17:22 Total Protein 7.1 g/dl (6.4-8.2) 04/30/18 17:22 Albumin 3.7 g/dl (3.4-5.0) 04/30/18 17:22 Active Medications Acetaminophen (Tylenol -) 650 mg PO Q4H PRN PRN Reason: FEVER Last Admin: 05/07/18 10:26 Dose: 650 mg Alprazolam (Xanax -) 0.5 mg PO Q4H PRN PRN Reason: ANXIETY Atorvastatin Calcium (Lipitor -) 80 mg PO HS [facility] Last Admin: 05/06/18 21:04 Dose: 80 mg Bisacodyl (Dulcolax Suppository -) 10 mg RC PRN PRN PRN Reason: CONSTIPATION Last Admin: 05/02/18 23:23 Dose: 10 mg Dexamethasone Sodium Phosphate (Decadron Injection -) 4 mg IVPB Q8H-IV [facility] Docusate Sodium (Colace -) 100 mg PO DAILY [facility] Last Admin: 05/07/18 09:34 Dose: 100 mg Enoxaparin Sodium (Lovenox -) 80 mg SQ BID [facility] Last Admin: 05/07/18 09:34 Dose: 80 mg Gabapentin (Neurontin -) 300 mg PO BID [facility] Last Admin: 05/07/18 09:34 Dose: 300 mg Levothyroxine Sodium (Synthroid -) 125 mcg PO DAILY@0700 [facility] Metoprolol Succinate (Toprol Xl -) 50 mg PO DAILY [facility] Last Admin: 05/07/18 09:34 Dose: 50 mg Multivitamins/Minerals/Vitamin C (Tab-A-Vit -) 1 tab PO DAILY [facility] Last Admin: 05/07/18 09:34 Dose: 1 tab Oxycodone HCl (Roxicodone -) 5 mg PO Q4H PRN PRN Reason: PAIN LEVEL 6-10 Last Admin: 05/07/18 10:24 Dose: 5 mg Pantoprazole Sodium (Protonix -) 40 mg PO DAILY [facility] Last Admin: 05/07/18 09:34 Dose: 40 mg 78 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 Problem list: Metastatic follicular cancer with symptomatic vertebral mass A/P decadron 10mg IVpiggyback q6hr from 05/01-, taper to 4mg q6hr from 05/04-05/07 , tapered to 4mg q8hr today, will continue to slow taper Radiotion oncology evalation, records received from Dr. jenkins from [facility] and reviewed, awaiting reports from Dr. Vick's office. GI prophylaxis while on steroids neuro checks continue lovenox BID 80units for prophylaxis as pt is hypercoagable due to immobility and malignancy
[2018-05-07] MEDS ORDERED: DEXAMETHASONE SOD PHOSPHATE 4 MG/1 ML VIAL IVPB SCH (20:00)
[2018-05-07] MEDS: ATORVASTATIN CA 80 MG TABLET (FP) PO SCH (21:04)
--- NOTE | 2018-05-07 21:36 | PN ---
Teaching Attending Note Name of Resident: Magali Larosn ATTENDING PHYSICIAN STATEMENT I saw and evaluated the patient. I reviewed the resident's note and discussed the case with the resident. I agree with the resident's findings and plan as documented. 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 Has LLE weakness Prior RT to T1 area by history so need to check prior treatment bello. Has been on BID lovenox for presumed strokes ( multiple lacunar infarcts in left and right thalamus as well as right cerebellum) , and for hyper coagulable state. On steroids--change to 4mg Q 8h RT planning ongoing On lovenox for hypercoagulable state of malignancy/ h/o strokes
[2018-05-08] MEDS: DEXAMETHASONE SOD PHOSPHATE 4 MG/1 ML VIAL IVPB SCH ×4 (01:06→18:42)
[2018-05-08] MEDS: LEVOTHYROXINE NA 125 MCG TABLET (FP) PO SCH (06:16)
[2018-05-08] MEDS: ACETAMINOPHEN 325 MG TABLET (FP) PO PRN ×3 (09:05→22:21)
[2018-05-08] MEDS: GABAPENTIN 300 MG CAPSULE (FP) PO SCH ×2 (09:08→22:20)
[2018-05-08] MEDS: PANTOPRAZOLE 40 MG TABLET (FP) PO SCH (09:08)
[2018-05-08] MEDS: MULTIVITAMINS (DAILY MVI) TABLET (FP) PO SCH (09:08)
[2018-05-08] MEDS: DOCUSATE SODIUM 100 MG CAPSULE (FP) PO SCH (10:40)
--- NOTE | 2018-05-08 14:34 | PN ---
Progress Note (short form) - Note Progress Note: no distress Left foot drop Vital Signs - 24 hr 05/07/18 05/07/18 05/08/18 21:00 22:00 02:00 Temperature 97.8 F 97.6 F Pulse Rate 58 L 57 L Respiratory 20 20 18 Rate Blood Pressure 113/65 132/68 O2 Sat by Pulse 97 Oximetry (%) 05/08/18 05/08/18 05/08/18 06:00 09:00 10:00 Temperature 97.8 F 97.9 F Pulse Rate 56 L 69 Respiratory 18 18 18 Rate Blood Pressure 124/67 111/62 O2 Sat by Pulse 97 Oximetry (%) 05/08/18 13:57 Temperature 98.7 F Pulse Rate 64 Respiratory 18 Rate Blood Pressure 110/64 O2 Sat by Pulse Oximetry (%) Current Medications Generic Name Dose Route Start Last Admin Trade Name Freq PRN Reason Stop Dose Admin Acetaminophen 650 mg 05/01/18 12:16 05/08/18 17:18 Tylenol - PO 650 mg Q4H PRN Administration FEVER Alprazolam 0.5 mg 05/03/18 18:24 Xanax - PO Q4H PRN ANXIETY Atorvastatin Calcium 80 mg 05/01/18 22:00 05/07/18 21:04 Lipitor - PO 80 mg HS [facility] Administration Bisacodyl 10 mg 05/02/18 22:50 05/02/18 23:23 Dulcolax Suppository - RC 10 mg PRN PRN Administration CONSTIPATION Dexamethasone Sodium Phosphate 4 mg 05/07/18 23:00 05/08/18 18:42 Decadron Injection - IVPB 4 mg Q8H-IV [facility] Administration Docusate Sodium 100 mg 05/01/18 10:00 05/08/18 10:40 Colace - PO 100 mg DAILY [facility] Administration Enoxaparin Sodium 80 mg 05/08/18 22:00 Lovenox - SQ BID [facility] Gabapentin 300 mg 05/01/18 10:00 05/08/18 09:08 Neurontin - PO 300 mg BID [facility] Administration Levothyroxine Sodium 125 mcg 05/08/18 07:00 05/08/18 06:16 Synthroid - PO 125 mcg DAILY@0700 [facility] Administration Metoprolol Succinate 50 mg 05/01/18 10:00 05/08/18 09:10 Toprol Xl - PO 50 mg DAILY [facility] Administration Multivitamins/Minerals/Vitamin C 1 tab 05/01/18 10:00 05/08/18 09:08 Tab-A-Vit - PO 1 tab DAILY [facility] Administration Pantoprazole Sodium 40 mg 05/01/18 20:30 05/08/18 09:08 Protonix - PO 40 mg DAILY [facility] Administration Laboratory Results - last 24 hr 05/08/18 17:20 POC Glucometer 117 Lungs clear Abd- soft, NT No edema left foot drop PLAN iv decadron- taper LS spine MRI noted still awaiting RT plan pain control Hematology to speak with pt's oncologist- DR Yolanda Marion - [phone] Problem List - Problems (1) Right hand pain Code(s): M79.641 - PAIN IN RIGHT HAND (2) Weakness of left foot Code(s): M21.42 - FLAT FOOT [PES PLANUS] (ACQUIRED), LEFT FOOT (3) Cervical radiculopathy Code(s): M54.12 - RADICULOPATHY, CERVICAL REGION (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
[2018-05-08] MEDS: ATORVASTATIN CA 80 MG TABLET (FP) PO SCH (22:20)
[2018-05-08] MEDS: ENOXAPARIN NA (PORCINE) 80 MG/0.8 ML DISP.SYRIN SQ SCH (22:20)
[2018-05-09] MEDS: DEXAMETHASONE SOD PHOSPHATE 4 MG/1 ML VIAL IVPB SCH ×3 (01:32→17:32)
[2018-05-09] MEDS: LEVOTHYROXINE NA 125 MCG TABLET (FP) PO SCH (06:15)
[2018-05-09] MEDS: ENOXAPARIN NA (PORCINE) 80 MG/0.8 ML DISP.SYRIN SQ SCH ×2 (10:31→21:04)
[2018-05-09] MEDS: MULTIVITAMINS (DAILY MVI) TABLET (FP) PO SCH (10:33)
[2018-05-09] MEDS: GABAPENTIN 300 MG CAPSULE (FP) PO SCH ×2 (10:33→21:04)
[2018-05-09] MEDS: DOCUSATE SODIUM 100 MG CAPSULE (FP) PO SCH (10:34)
[2018-05-09] MEDS: PANTOPRAZOLE 40 MG TABLET (FP) PO SCH (10:34)
[2018-05-09] MEDS: ACETAMINOPHEN 325 MG TABLET (FP) PO PRN ×2 (11:19→21:05)
--- NOTE | 2018-05-09 12:29 | PN ---
Progress Note (short form) - Note Progress Note: no distress Left foot drop has pain in right arm which is better Vital Signs - 24 hr 05/08/18 05/08/18 05/09/18 13:57 21:00 02:00 Temperature 98.7 F 97.6 F 97.6 F Pulse Rate 64 58 L 60 Respiratory 18 18 20 Rate Blood Pressure 110/64 119/62 116/70 O2 Sat by Pulse 96 Oximetry (%) 05/09/18 05/09/18 05:29 10:00 Temperature 97.7 F 97.4 F L Pulse Rate 62 60 Respiratory 18 18 Rate Blood Pressure 108/59 L 119/65 O2 Sat by Pulse Oximetry (%) Current Medications Generic Name Dose Route Start Last Admin Trade Name Freq PRN Reason Stop Dose Admin Acetaminophen 650 mg 05/01/18 12:16 05/09/18 11:19 Tylenol - PO 650 mg Q4H PRN Administration FEVER Alprazolam 0.5 mg 05/03/18 18:24 Xanax - PO Q4H PRN ANXIETY Atorvastatin Calcium 80 mg 05/01/18 22:00 05/08/18 22:20 Lipitor - PO 80 mg HS [facility] Administration Bisacodyl 10 mg 05/02/18 22:50 05/02/18 23:23 Dulcolax Suppository - RC 10 mg PRN PRN Administration CONSTIPATION Dexamethasone Sodium Phosphate 4 mg 05/07/18 23:00 05/09/18 10:33 Decadron Injection - IVPB 4 mg Q8H-IV [facility] Administration Docusate Sodium 100 mg 05/01/18 10:00 05/09/18 10:34 Colace - PO 100 mg DAILY [facility] Administration Enoxaparin Sodium 80 mg 05/08/18 22:00 05/09/18 10:31 Lovenox - SQ 80 mg BID [facility] Administration Gabapentin 300 mg 05/01/18 10:00 05/09/18 10:33 Neurontin - PO 300 mg BID [facility] Administration Levothyroxine Sodium 125 mcg 05/08/18 07:00 05/09/18 06:15 Synthroid - PO 125 mcg DAILY@0700 [facility] Administration Metoprolol Succinate 50 mg 05/01/18 10:00 05/09/18 10:34 Toprol Xl - PO 50 mg DAILY [facility] Administration Multivitamins/Minerals/Vitamin C 1 tab 05/01/18 10:00 05/09/18 10:33 Tab-A-Vit - PO 1 tab DAILY [facility] Administration Pantoprazole Sodium 40 mg 05/01/18 20:30 05/09/18 10:34 Protonix - PO 40 mg DAILY [facility] Administration Laboratory Results - last 24 hr 05/08/18 17:20 POC Glucometer 117 Lungs clear Abd- soft, NT No edema left foot drop PLAN iv decadron- taper LS spine MRI noted still awaiting RT plan-- no records obtained from Dr edge's office-- his previous radiation oncologist pain control Hematology to speak with pt's oncologist- DR Yolanda Marion - [phone] Problem List - Problems (1) Right hand pain Code(s): M79.641 - PAIN IN RIGHT HAND (2) Weakness of left foot Code(s): M21.42 - FLAT FOOT [PES PLANUS] (ACQUIRED), LEFT FOOT (3) Cervical radiculopathy Code(s): M54.12 - RADICULOPATHY, CERVICAL REGION (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
[2018-05-09] MEDS: ATORVASTATIN CA 80 MG TABLET (FP) PO SCH (21:04)
--- NOTE | 2018-05-09 23:23 | PN ---
Progress Note (short form) - Note Progress Note: Radiation Oncology Feeling better overall with less right elbow pain Right convention services manager 4+/5 Left dorsiflexion 3/5 Impression: Metastatic thyroid ca (Hurthle cell) s/p 35Gy SBRT to T2 vertebra and right posterior 2nd rib in 10/2016, ?45Gy to T2 as well as rib in 2014. Still awaiting RT plan from 2014 to clarify cumulative dose received by cord and brachial plexus. Have reviewed prior notes/records from [facility] [place] and [facility]. Since at least October 2017, has had T2 cord compression and pathologic fractures T1>T2 (surgery not recommended at [facility] [place] in Jan 2018). Has been receiving Xgeva with restaging in Feb and Mar c/w stable disease at T1 + T2 with persistent cord compression. Has been receiving gabapentin and oxycodone for bilateral upper extremity neuropathy. In light of chronicity of cord compression and neuropathy as well as history of repeat RT to T-spine and rib, would consider possibility of RT myelitis/ plexitis rather than acute cord compression. Clinically seems to be improving on decadron. Foot drop persists but likely unrelated to T spine disease ?from lumbar degen disease Plan: Would favor conservative management at this time with slow decadron taper , eval for brace for foot drop, and discharge to SNF for rehab/PT. May follow up with oncologists and RT at [facility] [place]. Discussed with Dr. Larson and pt who is agreeable.
[2018-05-10] MEDS: DEXAMETHASONE SOD PHOSPHATE 4 MG/1 ML VIAL IVPB SCH ×2 (01:03→10:49)
[2018-05-10] MEDS: LEVOTHYROXINE NA 125 MCG TABLET (FP) PO SCH (06:09)
[2018-05-10] MEDS: ACETAMINOPHEN 325 MG TABLET (FP) PO PRN (08:30)
[2018-05-10] MEDS: DOCUSATE SODIUM 100 MG CAPSULE (FP) PO SCH (10:49)
[2018-05-10] MEDS: GABAPENTIN 300 MG CAPSULE (FP) PO SCH (10:49)
[2018-05-10] MEDS: ENOXAPARIN NA (PORCINE) 80 MG/0.8 ML DISP.SYRIN SQ SCH (10:49)
[2018-05-10] MEDS: MULTIVITAMINS (DAILY MVI) TABLET (FP) PO SCH (10:49)
[2018-05-10] MEDS: PANTOPRAZOLE 40 MG TABLET (FP) PO SCH (10:51)
[2018-05-10 11:11] VITALS: BP 104/58; PULSE 63; TEMP 98
--- NOTE | 2018-05-10 12:00 | DS ---
Physical Examination Vital Signs: Vital Signs Temperature 98.0 F 05/10/18 10:00 Pulse Rate 63 05/10/18 10:00 Respiratory Rate 18 05/10/18 10:00 Blood Pressure 104/58 L 05/10/18 10:00 O2 Sat by Pulse Oximetry (%) 97 05/10/18 09:00 Findings/Remarks: awake/ comfortable anxious no new issues . all f/u noted afebrile mild anxious . Constitutional: Yes: No Distress, Anxious Eyes: Yes: Conjunctiva Clear Neck: Yes: Supple Cardiovascular: Yes: Regular Rate and Rhythm Respiratory: Yes: CTA Bilaterally Gastrointestinal: Yes: Soft Edema: No Neurological: Yes: Alert (foot drop + -- right arm weakness _- Improved) Labs: CBC, BMP 05/01/18 05:10 05/04/18 06:30 Discharge Summary Reason For Visit: PAIN OF RIGHT HAND,WEAKNESS OF LEFT FOOT Current Active Problems Right hand pain (Acute) Weakness of left foot (Acute) Hospital Course: pt with extensive pmhx admitted when send to er from Neurologist office-- Dr. Garza for left foot drop and right arm weakness Neurology impression is ( Dr. 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 Treated with steroids got better RT also followed=== RT to be considered as out pt-- Pt now stable for d/c back to snf. Need to be followed with RT and Neurology as out pt Meds reconcilled Decadron to be tapered slowly. left foot brace for foot drop. Discussed with pt/nursing staff will d/c back to snf. Condition: Stable - Instructions Referrals: Martin Garza MD [Primary Care Provider] - Aquiles Whitney MD [Staff Physician] - Disposition: [facility] FACILITY - Home Medications Comprehensive Discharge Medication List: Ambulatory Orders Acetaminophen 650 mg PO Q6H PRN 11/09/17 Atorvastatin Ca [Lipitor] 80 mg PO HS 11/09/17 Docusate Sodium [Colace] 100 mg PO DAILY 11/09/17 Gabapentin 300 mg PO BID 11/09/17 Gabapentin 600 mg PO HS #30 tablet 11/09/17 Metoprolol Succinate 50 mg PO DAILY 11/09/17 Multivitamins [Multivit ([facility] Formul[facility])] 1 tab PO DAILY 11/09/17 Alprazolam [Xanax] 0.5 mg PO Q6H PRN tablet MDD 4 05/10/18 Bisacodyl Suppository [Dulcolax Suppository -] 10 mg RC PRN PRN supp.rect 05/10 Dexamethasone [Decadron] 4 mg PO QID 30 Days #30 tablet 05/10/18 Enoxaparin [Lovenox -] 80 mg SQ BID disp.syrin 05/10/18 Levothyroxine [Synthroid -] 125 mcg PO DAILY@0700 tablet 05/10/18 Pantoprazole Sodium [Protonix -] 40 mg PO DAILY tablet.ec 05/10/18
== END 2018-05-10 15:34 | DRG 54 ==
LOC: JER 16:54 → JERBED 21:49 → J4S 05-01 15:03
PROVIDERS: ADMIT Internal Medicine; ATTEND Internal Medicine
DX: C79.49 Secondary malignant neoplasm of other parts of nervous system (principal); G04.91 Myelitis, unspecified; M51.04 Intervertebral disc disorders with myelopathy, thoracic region; C79.51 Secondary malignant neoplasm of bone; G95.29 Other cord compression; M47.26 Other spondylosis with radiculopathy, lumbar region; M21.372 Foot drop, left foot; G90.2 Horner's syndrome; K21.9 Gastro-esophageal reflux disease without esophagitis; I10 Essential (primary) hypertension; M13.841 Other specified arthritis, right hand; E03.9 Hypothyroidism, unspecified; M21.42 Flat foot [pes planus] (acquired), left foot; M79.641 Pain in right hand; M48.07 Spinal stenosis, lumbosacral region; G58.9 Mononeuropathy, unspecified; C73 Malignant neoplasm of thyroid gland; Z86.73 Personal history of transient ischemic attack (TIA), and cerebral infarction without residual deficits; Z86.718 Personal history of other venous thrombosis and embolism
CPT/HCPCS: 36415; 70450-TC; 71045-TC-FY; 72156-TC; 72157-TC; 72158-TC; 78306-TC; 80048; 80053; 80061; 81003; 81015; 82962; 83721; 84443; 85025; 85610; 86850; 86900; 86901; 87086; 87186; 93005; 93010; 93306-TC; 93880-TC; 97116-GP; 97162-GP; 99285-25; A9503; J1100

== ENCOUNTER 2018-05-23 22:55 | Emergency (ER) | payer OTHER, BC ==
[2018-05-23 23:07] VITALS: BP 150/75; PULSE 69; TEMP 97.9; BMI 25.8
--- NOTE | 2018-05-23 23:30 | PDOC ---
Attending Attestation - Resident Resident Name: Pepe Cole - ED Attending Attestation I have performed the following: I have examined & evaluated the patient, The case was reviewed & discussed with the resident, I agree w/resident's findings & plan, Exceptions are as noted - HPI HPI: 05/23/18 23:41 78y M h/o cee syndrome, cva with left foot drop, htn, metastatic thyroid ca sp thyroidectomy, presents with worsening L leg weakness. He has been having difficulty walking/standing over the past few days - he was in the ED a efw weeks ago, but sypmoms have worsened substantially. Pt notes difficulty with urination/bowel movement for several weeks (since prior hospitalization). Pt was dc on dexamethasone 4mg, but notes he has not taken it recently, last does was 1/2 per med reconcilation. Per prior notes, pt was not a surgical candiate. neuro: 4/5 on RLE, upgoing babinski 2/5 on LLE abd: firm, distended, nontender suspect exacerbation of cord compression due to d/c of decadron - Medical Decision Making 05/24/18 02:[address] Garza - pts weakness likely due to being off steroids for the past 8 days - would recommend restarting his steroids with 10 of decadron here and 4mg dexamethasone. notes we can dc the pt back to [place] with outpatient workup. Heart Score/ECG Review - ECG Impressions Comment:: 05/24/18 01:51 Twelve-lead EKG was performed and reviewed by me. There is normal sinus rhythm with a normal rate. Rate of [address] changes suggestive of acute ischemia
--- NOTE | 2018-05-23 23:38 | PDOC ---
History of Present Illness - General Chief Complaint: Weakness Stated Complaint: WEAKNESS Time Seen by Provider: 05/23/18 23:01 History Source: Patient Exam Limitations: No Limitations - History of Present Illness Initial Comments: 05/23/18 23:32 Patient is 78M with history of metastatic thyroid cancer ([place]) with recent MRI of spine on 05/01/18-05/02/18 that showed lytic lesions in upper t-spine and nuclear study showing possible destruction in L-spine, HTN, on lovenox for presumed stroke here today complaining of worsening left foot drop. Patient states that when he was discharged he was able to get up and walk some, but has not been able to for the past two days. He denies fevers, chills, nausea, vomiting. He denies chest pain and shortness of breath. Patient was discharged with a steroid taper, but states that he was not able to tolerate that at the group home, but wants to be started on steroid again because he wants to be able to use his legs. Review of chart shows patient is not surgical candidate. Patient states that he is no longer a candidate for radiation therapy. Past History - Past Medical History Allergies/Adverse Reactions: Allergies Allergy/AdvReac Type Severity Reaction Status Date / Time No Known Allergies Allergy Verified 05/23/18 23:02 Home Medications: Ambulatory Orders Acetaminophen 650 mg PO Q6H PRN 11/09/17 Atorvastatin Ca [Lipitor] 80 mg PO HS 11/09/17 Docusate Sodium [Colace] 100 mg PO DAILY 11/09/17 Gabapentin 300 mg PO BID 11/09/17 Gabapentin 600 mg PO HS #30 tablet 11/09/17 Metoprolol Succinate 50 mg PO DAILY 11/09/17 Multivitamins [Multivit ([facility])] 1 tab PO DAILY 11/09/17 Alprazolam [Xanax] 0.5 mg PO Q6H PRN tablet MDD 4 05/10/18 Bisacodyl Suppository [Dulcolax Suppository -] 10 mg RC PRN PRN supp.rect 05/10 Dexamethasone [Decadron] 4 mg PO QID 30 Days #30 tablet 05/10/18 Enoxaparin [Lovenox -] 80 mg SQ BID disp.syrin 05/10/18 Levothyroxine [Synthroid -] 125 mcg PO DAILY@0700 tablet 05/10/18 Pantoprazole Sodium [Protonix -] 40 mg PO DAILY tablet.ec 05/10/18 Cancer: Yes (Thyriod camets to femur, rib cage, thoracaic vetebre) CVA: Yes COPD: No DVT: Yes GI Disorders: Yes (GERD) HTN: Yes Thyroid Disease: Yes - Surgical History Appendectomy: Yes Orthopedic Surgery: Yes (left femur ORIF) - Immunization History Immunization Up to Date: Yes - Suicide/Smoking/Psychosocial Hx Smoking History: Unknown if ever smoked Have you smoked in the past 12 months: No If you are a former smoker, when did you quit?: 2005 Information on smoking cessation initiated: No Hx Alcohol Use: No Drug/Substance Use Hx: No Substance Use Type: None Review of Systems - Review of Systems Comments:: 05/23/18 23:38 GENERAL/CONSTITUTIONAL: No fever or chills. HEAD, EYES, EARS, NOSE AND THROAT: No change in vision. No sore throat. CARDIOVASCULAR: No chest pain or shortness of breath RESPIRATORY: No cough, wheezing, or hemoptysis. GASTROINTESTINAL: No nausea, vomiting, diarrhea or constipation. GENITOURINARY: +urinary and fecal incontinence MUSCULOSKELETAL: No joint or muscle swelling or pain. SKIN: No rash NEUROLOGIC: No headache, vertigo, loss of consciousness, +worsening left foot drop ENDOCRINE: No increased thirst. No abnormal weight change ALLERGIC/IMMUNOLOGIC: No hives or skin allergy. *Physical Exam - Vital Signs Last Vital Signs Temp Pulse Resp BP Pulse Ox 97.9 F 69 20 150/75 96 05/23/18 23:02 05/23/18 23:02 05/23/18 23:02 05/23/18 23:02 05/23/18 23:02 - Physical Exam Comments: 05/23/18 23:39 GENERAL: Awake, alert, and fully oriented, in no acute distress HEAD: No signs of trauma, normocephalic, atraumatic EYES: PERRLA, EOMI, sclera anicteric, conjunctiva clear ENT: Auricles normal inspection, hearing grossly normal, nares patent, oropharynx clear without exudates. Moist mucosa NECK: Normal ROM, supple, no lymphadenopathy, JVD, or masses LUNGS: No distress, speaks full sentences, clear to auscultation bilaterally HEART: Regular rate and rhythm, normal S1 and S2, no murmurs, rubs or gallops, peripheral pulses normal and equal bilaterally. ABDOMEN: Distended, lumpy masses appreciated, nontender EXTREMITIES: Normal inspection, Normal range of motion, no edema. No clubbing or cyanosis. NEUROLOGICAL: L foot drop, +R babinski, lower leg sensory deficits to touch, 1/ 5 strength in leg raise, 0/5 left foot flexion, 3/5 in right, spasticity in R leg SKIN: Warm, Dry, normal turgor, no rashes or lesions noted. Moderate Sedation - Procedure Monitoring Vital Signs: Procedure Monitoring Vital Signs Temperature 97.9 F 05/23/18 23:02 Pulse Rate 69 05/23/18 23:02 Respiratory Rate 20 05/23/18 23:02 Blood Pressure 150/75 05/23/18 23:02 O2 Sat by Pulse Oximetry (%) 96 05/23/18 23:02 ED Treatment Course - LABORATORY CBC & Chemistry Diagram: 05/24/18 00:15 05/24/18 00:15 - RADIOLOGY Radiology Studies Ordered: Category Date Time Status CXRPORT [CHEST X-RAY PORTABLE*] [RAD] Stat Radiology 05/23/18 23:31 Ordered Medical Decision Making - Medical Decision Making 05/23/18 23:41 Patient is 78M with history of metastatic thyroid cancer with multiple mets here today with worsening foot drop and inability to ambulate. Vitals normal and stable. Believe this is likely 2/2 cord compression. Will treat with steroids as per prior admission, Dr Garza paged. Per patient record, patient is not surgical candidate. 05/24/18 00:14 D/w Dr Garza. No need to emergently image at this time as patient has known disease process and cause (not taking steroids) as reason for worsening of his condition. Will treat with steroids, possibly discharge with instructions to take steroids at rehab facility. 05/24/18 02:22 CBC, CMP reassuring. CXR shows no acute cardiopulmonary process. EKG shows normal sinus rhythm with rate of 70. No st elevations/depressions. Normal axis. Normal intervals. No significant t wave abnormalities. After discussion with patient, will discharge home with dexamethasone 4mg q6h. *DC/Admit/Observation/Transfer Diagnosis at time of Disposition: Spinal cord tumor - Discharge Dispostion Disposition: HOME Condition at time of disposition: Stable Decision to Admit order: No - Referrals Referrals: Dario Davila MD [Primary Care Provider] - - Patient Instructions Additional Instructions: Please take dexamethasone 4mg every 6 hours. Please follow up with Dr Garza this week. Please return if you have any new, worsening or concerning symptoms, especially worsening weakness, fevers, and confusion. - Post Discharge Activity
[2018-05-23] MEDS ORDERED: DEXAMETHASONE SOD PHOSPHATE 10 MG/1 ML VIAL IVPUSH ONE (23:43)
[2018-05-24] MEDS ORDERED: DEXAMETHASONE SOD PHOSPHATE 10 MG/1 ML VIAL ONE (00:18)
[2018-05-24 00:55] LABS: BASO % 0.9 % (0-2.0); EOS % 2.2 % (0-4.5); HEMATOCRIT 33.7 % (35.4-49); HEMOGLOBIN 11.7 GM/dL (11.7-16.9); LYMPH % 11.3 % (8-40); MCH 31.1 pg (25.7-33.7); MCHC 34.9 g/dl (32.0-35.9); MEAN CELL VOLUME 89.3 fl (80-96); MEAN PLT VOLUME 7.3 fl (7.5-11.1); MONO % 9.1 % (3.8-10.2); NEUT % 76.5 % (42.8-82.8); PLATELET COUNT 340 K/MM3 (134-434); RBC 3.77 M/mm3 (4.00-5.60); RDW 16.8 % (11.9-15.9); WHITE BLOOD COUNT 7.3 K/mm3 (4.0-10.0)
[2018-05-24 01:31] LABS: ALBUMIN 2.7 g/dl (3.4-5.0); ALK PHOS 85 U/L (45-117); ANION GAP 8 MMOL/L (8-16); BILIRUBIN,TOTAL 0.6 mg/dL (0.2-1); BLOOD UREA NITROGEN 16 mg/dL (7-18); CALCIUM 7.8 mg/dL (8.5-10.1); CHLORIDE 102 mmol/L (98-107); CO2 23 mmol/L (21-32); CREATININE 0.6 mg/dL (0.55-1.3); GLUCOSE,RANDOM 112 mg/dL (74-106); MAGNESIUM 2.2 mg/dL (1.8-2.4); PHOSPHOROUS 3.9 mg/dL (2.5-4.9); POTASSIUM 4.6 mmol/L (3.5-5.1); SGOT/AST 20 U/L (15-37); SGPT/ALT 34 U/L (13-61); SODIUM 133 mmol/L (136-145); TOT PROT 5.8 g/dl (6.4-8.2)
--- NOTE | 2018-05-24 11:54 | EKG ---
Test Reason : Blood Pressure : / mmHG Vent. Rate : 070 BPM Atrial Rate : 070 BPM P-R Int : 186 ms QRS Dur : 084 ms QT Int : 414 ms P-R-T Axes : 040 -25 025 degrees QTc Int : 447 ms POOR DATA QUALITY, INTERPRETATION MAY BE ADVERSELY AFFECTED NORMAL SINUS RHYTHM VOLTAGE CRITERIA FOR LEFT VENTRICULAR HYPERTROPHY ABNORMAL ECG WHEN COMPARED WITH ECG OF 30-APR-2018 19:56, NO SIGNIFICANT CHANGE WAS FOUND Confirmed by LADAN URIAS, CHERRY ([id number]) on 05/24/2018 11:53:45 AM Referred By: Confirmed By:CHERRY PICKERING MD
== END 2018-05-24 03:38 ==
LOC: JER 22:55
PROC: 3E0333Z Introduction of Anti-inflammatory into Peripheral Vein, Percutaneous Approach (ICD-10-PCS; principal; 2018-05-23)
DX: M21.372 Foot drop, left foot (principal); C73 Malignant neoplasm of thyroid gland; C79.49 Secondary malignant neoplasm of other parts of nervous system; C79.51 Secondary malignant neoplasm of bone; I10 Essential (primary) hypertension; K21.9 Gastro-esophageal reflux disease without esophagitis; Z86.73 Personal history of transient ischemic attack (TIA), and cerebral infarction without residual deficits; Z86.718 Personal history of other venous thrombosis and embolism; Z79.01 Long term (current) use of anticoagulants
CPT/HCPCS: 36415; 71045-TC-FY; 80053; 83735; 84100; 85025; 93005; 93010; 99283-25; J1100

== ENCOUNTER 2018-06-13 14:57 | Inpatient (IN) | payer OTHER, BC | END 2018-06-17 18:47 | LOC: J6S 06-14 01:42 → JER 14:57 → JERBED 20:18 ==